=== PATIENT | female | born 1995 | race African-American/Black ===

== ENCOUNTER 2017-01-14 09:05 | Emergency (ER) | payer BC ==
[~2017-01-14] VITALS: Ht 172.7 cm; Wt 53.1 kg
[~2017-01-14 09:05] MED LIST: HYDR-971 PO; NAPR500T3 PO
[2017-01-14 09:14] VITALS: BP 107/60
[2017-01-14] MEDS ORDERED: ONDANSETRON ODT 4 MG TAB.RAPDIS. PO ONE (09:30)
[2017-01-14 10:01] LABS: BILIRUBIN,URINE NEGATIVE (NEG); GLUCOSE,URINE NEGATIVE (NEG); NITRITE,URINE NEGATIVE (NEG); PH,URINE 6.5; PROTEIN,URINE NEGATIVE (NEG-TRACE)
[2017-01-14 10:07] LABS: BACTERIA,URINE FEW /HPF (0-FEW); SQUAMOUS EPITHELIAL CELL,UR OCC /LPF
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
== END 2017-01-14 10:41 | disposition home or self-care (01) ==
LOC: ER 09:05
DX: M54.5 Low back pain (principal); R11.2 Nausea with vomiting, unspecified; F12.10 Cannabis abuse, uncomplicated; R39.15 Urgency of urination; L29.9 Pruritus, unspecified; R35.0 Frequency of micturition; V49.40XA Driver injured in collision with unspecified motor vehicles in traffic accident, initial encounter; Y93.I9 Activity, other involving external motion; Y92.410 Unspecified street and highway as the place of occurrence of the external cause; Y99.8 Other external cause status
CPT/HCPCS: 81001; 81025; 87086; 99284; Q0162

== ENCOUNTER 2017-08-03 10:08 | Emergency (ER) | payer SELFPAY ==
[2017-08-03 10:51] LABS: URINE HCG POC HCG POSITIVE (Negative)
== END 2017-08-03 13:37 | disposition home or self-care (01) ==
LOC: ER 10:08
DX: O26.899 Other specified pregnancy related conditions, unspecified trimester (principal); O23.599 Infection of other part of genital tract in pregnancy, unspecified trimester; B96.89 Other specified bacterial agents as the cause of diseases classified elsewhere; R10.9 Unspecified abdominal pain
CPT/HCPCS: 81025; 84702; 99284; Q0111

== ENCOUNTER 2017-08-30 08:38 | Emergency (ER) | payer SELFPAY ==
[2017-08-30 09:27] LABS: URINE HCG POC HCG POSITIVE (Negative)
[2017-08-30 10:04] LABS: ADD MAN DIFF? NO
[2017-08-30 10:07] LABS: BASO # 0.1 x10^3/uL (0.0-0.2); BASO % 1 % (0-3); EOS # 0.2 x10^3/uL (0.0-0.7); EOS % 5 % (0-3); HEMATOCRIT 41.7 % (36.0-47.0); HEMOGLOBIN 13.8 g/dL (12.0-15.5); LYMPH # 1.2 x10^3/uL (1.0-4.8); LYMPH % 28 % (24-48); MEAN CORPUSCULAR HEMOGLOBIN 31 pg (25-35); MEAN CORPUSCULAR HGB CONC 33 g/dL (31-37); MEAN CORPUSCULAR VOLUME 93 fL (79-100); MONO # 0.5 x10^3/uL (0.0-1.1); MONO % 11 % (0-9); NEUT # 2.4 x10^3uL (1.8-7.7); NEUT % 56 % (31-73); PLATELET COUNT 211 x10^3/uL (140-400); RED BLOOD COUNT 4.49 x10^6/uL (3.50-5.40); WHITE BLOOD COUNT 4.3 x10^3/uL (4.0-11.0)
[2017-08-30 10:13] LABS: BACTERIA,URINE 0 /HPF (0-FEW); BILIRUBIN,URINE NEGATIVE (NEG); CLARITY,URINE CLEAR; COLOR,URINE YELLOW; GLUCOSE,URINE NEGATIVE (NEG); NITRITE,URINE NEGATIVE (NEG); PH,URINE 7.5; PROTEIN,URINE NEGATIVE (NEG-TRACE); RBC,URINE 0 /HPF (0-2); SQUAMOUS EPITHELIAL CELL,UR FEW /LPF; WBC,URINE 0 /HPF (0-4)
[2017-08-31 15:29] LABS: CHLAMYDIA PROBE Negative (Negative); GC PROBE Negative (Negative)
== END 2017-08-30 11:42 | disposition home or self-care (01) ==
LOC: ER 08:38
DX: O20.9 Hemorrhage in early pregnancy, unspecified (principal); O23.591 Infection of other part of genital tract in pregnancy, first trimester; N76.0 Acute vaginitis; B96.89 Other specified bacterial agents as the cause of diseases classified elsewhere; Z3A.01 Less than 8 weeks gestation of pregnancy
CPT/HCPCS: 36415; 76801; 76817; 81001; 81025; 84702; 85025; 86850; 86900; 86901; 87491; 87591; 99285-25; Q0111

== ENCOUNTER 2017-11-15 11:38 | Emergency (ER) | payer BC ==
[2017-11-15] MEDS ORDERED: IV NORMAL SALINE 1000ML BAG 1,000 ML IV (11:58)
[2017-11-15 12:03] LABS: URINE HCG POC HCG NEGATIVE (Negative)
[2017-11-15 12:24] LABS: BILIRUBIN,URINE NEGATIVE (NEG); CLARITY,URINE CLEAR; COLOR,URINE YELLOW; GLUCOSE,URINE NEGATIVE (NEG); PROTEIN,URINE NEGATIVE (NEG-TRACE)
[2017-11-15 12:25] LABS: BACTERIA,URINE FEW /HPF (0-FEW); NITRITE,URINE NEGATIVE (NEG); RBC,URINE RARE /HPF (0-2); SQUAMOUS EPITHELIAL CELL,UR FEW /LPF
[2017-11-15] MEDS: ACETAMINOPHEN 325 MG TABLET. PO (12:36)
[2017-11-15] MEDS: ONDANSETRON ODT 4 MG TAB.RAPDIS. PO (12:36)
[2017-11-16 14:30] LABS: CHLAMYDIA PROBE Positive (Negative); GC PROBE Negative (Negative)
== END 2017-11-15 13:18 | disposition home or self-care (01) ==
LOC: ER 11:38
DX: N76.0 Acute vaginitis (principal); R51 Headache; R11.0 Nausea; B96.89 Other specified bacterial agents as the cause of diseases classified elsewhere; Z87.440 Personal history of urinary (tract) infections
CPT/HCPCS: 81001; 81025; 87086; 87491; 87591; 99284; Q0111; Q0162

== ENCOUNTER 2017-12-10 13:43 | Emergency (ER) | payer BC ==
[2017-12-10] MEDS ORDERED: VERAPAMIL IV (14:15)
[2017-12-10] MEDS: IV NORMAL SALINE 1000ML BAG 500 ML IV ×2 (14:24→16:15)
[2017-12-10 14:32] LABS: ADD MAN DIFF? NO
[2017-12-10 14:37] LABS: BASO # 0.1 x10^3/uL (0.0-0.2); BASO % 1 % (0-3); EOS # 0.2 x10^3/uL (0.0-0.7); EOS % 2 % (0-3); HEMATOCRIT 42.4 % (36.0-47.0); HEMOGLOBIN 14.3 g/dL (12.0-15.5); LYMPH # 2.6 x10^3/uL (1.0-4.8); LYMPH % 30 % (24-48); MEAN CORPUSCULAR HEMOGLOBIN 32 pg (25-35); MEAN CORPUSCULAR HGB CONC 34 g/dL (31-37); MEAN CORPUSCULAR VOLUME 94 fL (79-100); MONO # 0.9 x10^3/uL (0.0-1.1); MONO % 10 % (0-9); NEUT % 58 % (31-73); PLATELET COUNT 230 x10^3/uL (140-400); RED BLOOD COUNT 4.51 x10^6/uL (3.50-5.40); RED CELL DISTRIBUTION WIDTH 13.3 % (11.5-14.5); WHITE BLOOD COUNT 8.7 x10^3/uL (4.0-11.0)
[2017-12-10] MEDS: dilTIAZem IV PUSH 25 MG/5 ML VIAL IVP (14:43)
[2017-12-10 14:59] LABS: ANION GAP 17 (6-14); BLOOD UREA NITROGEN 13 mg/dL (7-20); CALCIUM 8.7 mg/dL (8.5-10.1); CARBON DIOXIDE 21 mmol/L (21-32); CHLORIDE 99 mmol/L (98-107); CREATININE 0.8 mg/dL (0.6-1.0); GFR 106.6; GLUCOSE 112 mg/dL (70-99); POTASSIUM 3.3 mmol/L (3.5-5.1); SODIUM 137 mmol/L (136-145)
[2017-12-10] MEDS: VERAPAMIL 5 MG/2 ML VIAL. IV (15:00)
[2017-12-10 15:03] LABS: URINE HCG POC HCG NEGATIVE (Negative)
[2017-12-10 15:10] LABS: BILIRUBIN,URINE NEGATIVE (NEG); CLARITY,URINE CLEAR; COLOR,URINE YELLOW; GLUCOSE,URINE NEGATIVE (NEG); NITRITE,URINE NEGATIVE (NEG); PROTEIN,URINE NEGATIVE (NEG-TRACE)
[2017-12-10 15:12] LABS: BARBITURATES NEG (NEG); BENZODIAZEPINES NEG (NEG); CANNABINOIDS NEG (NEG); COCAINE NEG (NEG); METHADONE NEG (NEG); OPIATES NEG (NEG); PHENCYCLIDINE NEG (NEG)
[2017-12-10 15:12] LABS: THYROID STIM HORMONE (TSH) 1.321 uIU/mL (0.358-3.74)
[2017-12-10 15:13] LABS: AMPHETAMINE/METHAMPHETAMINE NEG (NEG); ETHANOL, URINE NEG (NEG)
[2017-12-10 15:21] LABS: BACTERIA,URINE FEW /HPF (0-FEW); RBC,URINE 0 /HPF (0-2); SQUAMOUS EPITHELIAL CELL,UR FEW /LPF
[2017-12-10 15:34] LABS: TROPONINI < 0.017 ng/mL (0.000-0.055)
[2017-12-10] MEDS: IOHEXOL 300 MG/ML 100ML VIAL. IV (16:26)
[2017-12-10] MEDS ORDERED: CONTRAST GIVEN MC (16:30)
[2017-12-10] MEDS: FLUCONAZOLE 100 MG TABLET. PO (18:11)
== END 2017-12-10 18:24 | disposition home or self-care (01) ==
LOC: ER 13:43
DX: R00.0 Tachycardia, unspecified (principal); F10.10 Alcohol abuse, uncomplicated; Z87.440 Personal history of urinary (tract) infections
CPT/HCPCS: 36415; 71045; 71275; 80048; 80307; 81001; 81025; 84443; 84484; 85025; 93005; 96374; 96375; 96376; 99285-25; J2060; J3490; J7030; Q9967

== ENCOUNTER 2018-08-21 09:55 | Emergency (ER) | payer BC ==
[~2018-08-21] VITALS: Ht 174 cm; Wt 58.1 kg
[~2018-08-21 09:55] MED LIST changes: +HYDR-3164 PO; -HYDR-971 PO; +METO10TA81 PO; +METR500T PO; +METR70GE14 VG; +NAPR-514 PO; -NAPR500T3 PO
[2018-08-21] MEDS ORDERED: ACETAMINOPHEN 325 MG TABLET. PO ONE (10:15)
[2018-08-21 10:56] LABS: BILIRUBIN,URINE NEGATIVE (NEG); CLARITY,URINE CLOUDY; COLOR,URINE YELLOW; NITRITE,URINE NEGATIVE (NEG); PROTEIN,URINE NEGATIVE (NEG-TRACE)
--- NOTE | 2018-08-21 11:09 | PHYS DOC ---
Past Medical History Past Medical History: , STD, UTI Additional Past Medical Histor: ETOH ABUSE Past Surgical History: No Surgical History Alcohol Use: Heavy Additional Information: last drink 08/18/18 Drug Use: None Adult General Chief Complaint Chief Complaint: ABDOMINAL PAIN IN HPI HPI Patient is a 23 year old female who presents with 17-20 weeks . She has been seeing Dr. More it was actually headed to see the ED today for appointment with the office is closed due to the weather. Patient states that other she has been regularly seen Dr. Chaves OB care that she has been not wanting the baby and has been drinking a half a pint a day up until last 3 days. Patient states the last 3 days she is decided that she does want the baby. She has been 4 times, one and 2 live children. Patient today is complaining of epigastric pain and at times lower abdominal pain that she states feels sharper cramping at times. Patient denies vaginal discharge although she does have some yellow discharge but states it is not abnormal and is not odorous. She denies any vaginal bleeding, fever, nausea, vomiting, diarrhea. Review of Systems Review of Systems Constitutional: Denies fever or chills [] Eyes: Denies change in visual acuity, redness, or eye pain [] HENT: Denies nasal congestion or sore throat [] Respiratory: Denies cough or shortness of breath [] Cardiovascular: No additional information not addressed in HPI [] GI: Epigastric and lower abdominal pain, Denies nausea, vomiting, bloody stools or diarrhea [] : Denies dysuria or hematuria [] Musculoskeletal: Denies back pain or joint pain [] Integument: Denies rash or skin lesions [] Neurologic: Denies headache, focal weakness or sensory changes [] All other systems were reviewed and found to be within normal limits, except as documented in this note. Current Medications Current Medications Current Medications Medications (Trade) Dose Ordered Sig/[facility] Start Time Stop Time Status Last Admin Dose Admin Acetaminophen (Tylenol) 650 mg 1X ONCE 08/21/18 10:15 08/21/18 10:23 DC 08/21/18 10:43 650 MG Allergies Allergies Allergies Coded Allergies Type Severity Reaction Last Updated Verified No Known Drug Allergies 08/04/13 No Physical Exam Physical Exam Constitutional: Well developed, well nourished, no acute distress, non-toxic appearance. [] HENT: Normocephalic, atraumatic, bilateral external ears normal, oropharynx moist, no oral exudates, nose normal. [] Eyes: PERRLA, EOMI, conjunctiva normal, no discharge. [] Neck: Normal range of motion, no tenderness, supple, no stridor. [] Cardiovascular:Heart rate regular rhythm, no murmur [] Lungs & Thorax: Bilateral breath sounds clear to auscultation [] Abdomen: Bowel sounds normal, soft, Epigastric tenderness, no masses, no pulsatile masses. [] Skin: Warm, dry, no erythema, no rash. [] Back: No tenderness, no CVA tenderness. [] Extremities: No tenderness, no cyanosis, no clubbing, ROM intact, no edema. [] Neurologic: Alert and oriented X 3, normal motor function, normal sensory function, no focal deficits noted. [] Psychologic: Affect normal, judgement normal, mood normal. [] Current Patient Data Vital Signs Vital Signs Date Time Temp Pulse Resp B/P (MAP) Pulse Ox O2 Delivery O2 Flow Rate FiO2 08/21/18 10:00 98.1 68 16 106/59 (75) 100 Room Air 98.1 Lab Values Laboratory Tests Test 08/21/18 10:01 08/21/18 10:55 Urine Collection Type Unknown Urine Color Yellow Urine Clarity Cloudy Urine pH 8.0 Urine Specific [place] 1.025 Urine Protein Negative mg/dL (NEG-TRACE) Urine Glucose (UA) Negative mg/dL (NEG) Urine Ketones (Stick) Negative mg/dL (NEG) Urine Blood Negative (NEG) Urine Nitrite Negative (NEG) Urine Bilirubin Negative (NEG) Urine Urobilinogen Dipstick 1.0 mg/dL (0.2 mg/dL) Urine Leukocyte Esterase Small (NEG) Urine RBC 0 /HPF (0-2) Urine WBC 1-4 /HPF (0-4) Urine Squamous Epithelial Cells Mod /LPF Urine Amorphous Sediment Present /HPF Urine Bacteria Moderate /HPF (0-FEW) Urine Mucus Marked /LPF White Blood Count 5.9 x10^3/uL (4.0-11.0) Red Blood Count 3.68 x10^6/uL (3.50-5.40) Hemoglobin 11.6 g/dL (12.0-15.5) L Hematocrit 34.2 % (36.0-47.0) L Mean Corpuscular Volume 93 fL (79-100) Mean Corpuscular Hemoglobin 32 pg (25-35) Mean Corpuscular Hemoglobin Concent 34 g/dL (31-37) Red Cell Distribution Width 13.7 % (11.5-14.5) Platelet Count 152 x10^3/uL (140-400) Neutrophils (%) (Auto) 66 % (31-73) Lymphocytes (%) (Auto) 18 % (24-48) L Monocytes (%) (Auto) 11 % (0-9) H Eosinophils (%) (Auto) 4 % (0-3) H Basophils (%) (Auto) 1 % (0-3) Neutrophils # (Auto) 3.9 x10^3uL (1.8-7.7) Lymphocytes # (Auto) 1.1 x10^3/uL (1.0-4.8) Monocytes # (Auto) 0.6 x10^3/uL (0.0-1.1) Eosinophils # (Auto) 0.3 x10^3/uL (0.0-0.7) Basophils # (Auto) 0.0 x10^3/uL (0.0-0.2) Sodium Level 137 mmol/L (136-145) Potassium Level 3.7 mmol/L (3.5-5.1) Chloride Level 103 mmol/L (98-107) Carbon Dioxide Level 26 mmol/L (21-32) Anion Gap 8 (6-14) Blood Urea Nitrogen 8 mg/dL (7-20) Creatinine 0.6 mg/dL (0.6-1.0) Estimated GFR (Cockcroft-Gault) 147.4 BUN/Creatinine Ratio 13 (6-20) Glucose Level 70 mg/dL (70-99) Calcium Level 8.3 mg/dL (8.5-10.1) L Total Bilirubin 0.4 mg/dL (0.2-1.0) Aspartate Amino Transferase (AST) 13 U/L (15-37) L Alanine Aminotransferase (ALT) 15 U/L (14-59) Alkaline Phosphatase 47 U/L (46-116) Total Protein 6.6 g/dL (6.4-8.2) Albumin 3.0 g/dL (3.4-5.0) L Albumin/Globulin Ratio 0.8 (1.0-1.7) L Lipase 109 U/L (73-393) Laboratory Tests 08/21/18 10:55 Laboratory Tests 08/21/18 10:55 EKG EKG [] Radiology/Procedures Radiology/Procedures OB ultrasound Impressions: [facility] [address] [place] [address] IMAGING REPORT Signed PATIENT: NORA CHEATHAM ACCOUNT: [id number] : 1995 LOCATION: ER AGE: 23 SEX: F EXAM STATUS: REG ER ORD. PHYSICIAN: KEELY CASPER APRN REASON: abdominal pain PROCEDURE: PREG MORE THAN OR EQ TO 14 WKS uterus ultrasound more than or equal to 14 weeks History: Abdominal pain Comparison: There is no previous relevant exam available Findings: Multiple sonographic images of the uterus are submitted. There is a single intrauterine fetus, breech presentation. bladder which was noted by technologist. There is demonstrable cardiac activity 147 bpm. Amniotic fluid volume is subjectively within normal limits. anatomy is not fully evaluated at this age of . Sonographic images of the maternal adnexal regions are not submitted. Focus of hypoechogenicity of the placenta is likely due to placental fitzgerald. Biometry data are as follows: Biparietal diameter 3.77 cm corresponds 17 weeks 4 days, 83rd percentile Head circumference 13.55 cm corresponding 17 weeks 0 days, 56 percentile Abdominal circumference 11.88 cm corresponds 17 weeks 4 days, 79th percentile Femur length 2.42 cm corresponds with 17 weeks 2 days, 68 percentile HC/AC ratio 1.14 within normal limits Estimated weight 194 g +/- 29 g Adjusted ultrasound age 17 weeks 3 days with estimated delivery date by ultrasound 01/26/2019. LMP age is 16 weeks 5 days with estimated delivery date of 01/31/2019. Impression: 1. There is a single viable intrauterine fetus in breech presentation. Focus of hypoechogenicity of the placenta is more likely due to placental fitzgerald. Electronically signed by: Jose Rafael العراقي MD (08/21/2018 11:11 AM) [id number] DICTATED and SIGNED BY: JOSE RAFAEL العراقي MD DATE: 08/21/18 1103 Course & Med Decision Making Course & Med Decision Making Patient is a 23 year old female who presents with 17-20 weeks . She has been seeing Dr. More it was actually headed to see the ED today for appointment with the office is closed due to the weather. Patient states that other she has been regularly seen Dr. Chaves OB care that she has been not wanting the baby and has been drinking a half a pint a day up until last 3 days. Patient states the last 3 days she is decided that she does want the baby. She has been 4 times, one and 2 live children. Patient today is complaining of epigastric pain and at times lower abdominal pain that she states feels sharper cramping at times. Patient denies vaginal discharge although she does have some yellow discharge but states it is not abnormal and is not odorous. She denies any vaginal bleeding, fever, nausea, vomiting, diarrhea. Alert and oriented. Infiltrate with a steady gait. She is currently rating her pain a 7 out of 10 and states that she has had a cough that she's been using cough syrup. There is Epigastric tenderness with palpation. She denies dysuria. Patient has no extremity edema. Vital signs are within normal limits. She denies shortness of breath or chest pain. Lungs are clear to auscultation all lobes. Heart rate regular without murmur. US shows 1. There is a single viable intrauterine fetus in breech presentation. Focus of hypoechogenicity of the placenta is more likely due to placental fitzgerald. Urinalysis shows some bacteria she'll be treated for urinary tract infection. Blood work is unremarkable. Not all of the patient's blood work is back at the patient is wanting to leave. Patient will need to follow up with her OB doctor as soon as possible. She is to call them today. Dragon Disclaimer Dragon Disclaimer This electronic medical record was generated, in whole or in part, using a voice recognition dictation system. Departure Departure Impression: Primary Impression: UTI (lower urinary tract infection) Disposition: 01 HOME, SELF-CARE Condition: STABLE Referrals: RICCO MORE Jr, MD (PCP) Patient Instructions: Alcohol Screening in , - Urinary Tract Infection Additional Instructions: Call Dr. More today for follow-up care at another point pain. Do not drink alcohol. Take medication as prescribed. Scripts Cephalexin (KEFLEX) 500 Mg Capsule 1 CAP PO BID for 7 Days, #14 CAP Prov: KEELY CASPER APRN 08/21/18 KEELY CASPER APRN Aug 21, 2018 11:09
--- NOTE | 2018-08-21 11:15 | RAD ---
uterus ultrasound more than or equal to 14 weeks History: Abdominal pain Comparison: There is no previous relevant exam available Findings: Multiple sonographic images of the uterus are submitted. There is a single intrauterine fetus, breech presentation. bladder which was noted by technologist. There is demonstrable cardiac activity 147 bpm. Amniotic fluid volume is subjectively within normal limits. anatomy is not fully evaluated at this age of . Sonographic images of the maternal adnexal regions are not submitted. Focus of hypoechogenicity of the placenta is likely due to placental fitzgerald. Biometry data are as follows: Biparietal diameter 3.77 cm corresponds 17 weeks 4 days, 83rd percentile Head circumference 13.55 cm corresponding 17 weeks 0 days, 56 percentile Abdominal circumference 11.88 cm corresponds 17 weeks 4 days, 79th percentile Femur length 2.42 cm corresponds with 17 weeks 2 days, 68 percentile HC/AC ratio 1.14 within normal limits Estimated weight 194 g +/- 29 g Adjusted ultrasound age 17 weeks 3 days with estimated delivery date by ultrasound 01/26/2019. LMP age is 16 weeks 5 days with estimated delivery date of 01/31/2019. Impression: 1. There is a single viable intrauterine fetus in breech presentation. Focus of hypoechogenicity of the placenta is more likely due to placental fitzgerald. Electronically signed by: Kevin Maguire MD (08/21/2018 11:11 AM) [id number]
[2018-08-21 11:16] LABS: BASO % 1 % (0-3); EOS # 0.3 x10^3/uL (0.0-0.7); EOS % 4 % (0-3); HEMATOCRIT 34.2 % (36.0-47.0); HEMOGLOBIN 11.6 g/dL (12.0-15.5); LYMPH # 1.1 x10^3/uL (1.0-4.8); LYMPH % 18 % (24-48); MEAN CORPUSCULAR HEMOGLOBIN 32 pg (25-35); MEAN CORPUSCULAR HGB CONC 34 g/dL (31-37); MEAN CORPUSCULAR VOLUME 93 fL (79-100); MONO # 0.6 x10^3/uL (0.0-1.1); MONO % 11 % (0-9); NEUT # 3.9 x10^3uL (1.8-7.7); NEUT % 66 % (31-73); PLATELET COUNT 152 x10^3/uL (140-400); RED BLOOD COUNT 3.68 x10^6/uL (3.50-5.40); RED CELL DISTRIBUTION WIDTH 13.7 % (11.5-14.5); WHITE BLOOD COUNT 5.9 x10^3/uL (4.0-11.0)
[2018-08-21 11:22] LABS: CALCIUM 8.3 mg/dL (8.5-10.1); CREATININE 0.6 mg/dL (0.6-1.0); GFR 147.4; POTASSIUM 3.7 mmol/L (3.5-5.1)
[2018-08-21 11:27] LABS: SQUAMOUS EPITHELIAL CELL,UR MOD /LPF
[2018-08-21 11:28] LABS: ALBUMIN/GLOBULIN RATIO 0.8 (1.0-1.7); TOTAL BILIRUBIN 0.4 mg/dL (0.2-1.0); TOTAL PROTEIN 6.6 g/dL (6.4-8.2)
[2018-08-21 11:28] LABS: AMORPHOUS SEDIMENT,UR PRESENT /HPF; BACTERIA,URINE MODERATE /HPF (0-FEW); RBC,URINE 0 /HPF (0-2)
[2018-08-21 11:41] VITALS: BP 102/58
[2018-08-21] MEDS ORDERED: CEPH-264 PO (11:53)
[2018-08-21 11:59] LABS: AMPHETAMINE/METHAMPHETAMINE NEG (NEG); BARBITURATES NEG (NEG); BENZODIAZEPINES NEG (NEG); CANNABINOIDS NEG (NEG); COCAINE NEG (NEG); METHADONE NEG (NEG); OPIATES NEG (NEG); PHENCYCLIDINE NEG (NEG)
== END 2018-08-21 11:59 | disposition home or self-care (01) ==
LOC: ER 09:55
DX: O23.42 Unspecified infection of urinary tract in pregnancy, second trimester (principal); O99.312 Alcohol use complicating pregnancy, second trimester; F10.20 Alcohol dependence, uncomplicated; Z3A.17 17 weeks gestation of pregnancy; Y90.0 Blood alcohol level of less than 20 mg/100 ml
CPT/HCPCS: 36415; 76805; 80053; 80307; 81001; 83690; 84702; 85025; 87086; 99284; G0480

== ENCOUNTER → 2018-09-13 | Outpatient (CLI) | payer BC ==
[2018-08-21 11:41] VITALS: BP 102/58
[~2018-09-13] MED LIST changes: +CEPH-264 PO
--- NOTE | 2018-09-13 13:01 | RAD ---
EXAM: Obstetrics sonogram. HISTORY: Uterine size and dates discrepancy. TECHNIQUE: Sonographic imaging of a gravid uterus was performed. COMPARISON: 08/21/2018. FINDINGS: There is a single intrauterine fetus in transverse presentation with a heart rate of 143 bpm. There is body motion. There is a three-vessel umbilical cord with normal insertion. The stomach, kidneys, bladder, spine and brain are unremarkable. The facial profile is unremarkable. The cervix is not measured. There is an anterior placenta without evidence of placenta previa. The biparietal diameter is 4.6 cm, corresponding with 19 weeks and 6 days. The head circumference is 17.5 cm, corresponding with 20 weeks and 0 days. The abdominal circumference is 15.2 cm, corresponding with 20 weeks and 3 days. The femoral length is 3.4 cm, corresponding with 20 weeks and 5 days. The estimated gestational age patient combined ultrasound measurements is 20 weeks and 2 days. The estimated weight is 358 g. The estimated due date is 01/29/2019. IMPRESSION: Single intrauterine fetus with an estimated gestational age based on ultrasound measurements of 20 weeks and 2 days and heart rate of 143 bpm. Electronically signed by: Micki Conrad MD (09/13/2018 12:58 PM) [email or web address]
== END | disposition home or self-care (01) ==
LOC: US 06:39
PROVIDERS: ATTEND Obstetrics & Gynecology
DX: O32.2XX0 Maternal care for transverse and oblique lie, not applicable or unspecified (principal); O26.842 Uterine size-date discrepancy, second trimester; Z3A.20 20 weeks gestation of pregnancy
CPT/HCPCS: 76805

== ENCOUNTER 2018-09-14 11:39 | Observation (INO) | payer BC ==
[2018-09-14] MEDS ORDERED: IV RINGERS,LACTATED 1000ML 1,000 ML IV SCH (11:51)
[2018-09-14 12:27] LABS: BILIRUBIN,URINE NEGATIVE (NEG); CLARITY,URINE CLEAR; COLOR,URINE YELLOW; NITRITE,URINE NEGATIVE (NEG); PH,URINE 6.5; PROTEIN,URINE NEGATIVE (NEG-TRACE)
[2018-09-14 12:28] LABS: AMNIO PT NEGATIVE
[2018-09-14 12:38] LABS: BACTERIA,URINE FEW /HPF (0-FEW); RBC,URINE OCC /HPF (0-2); SQUAMOUS EPITHELIAL CELL,UR MANY /LPF
== END 2018-09-14 13:15 | disposition home or self-care (01) ==
LOC: 3 SO LND 11:39
PROVIDERS: ADMIT Obstetrics & Gynecology; ATTEND Obstetrics & Gynecology
DX: O42.912 Preterm premature rupture of membranes, unspecified as to length of time between rupture and onset of labor, second trimester (principal); Z3A.20 20 weeks gestation of pregnancy
CPT/HCPCS: 36415; 81001; 84112; G0378; G0379; 87086

== ENCOUNTER 2018-09-27 18:10 | Observation (INO) | payer BC ==
[2018-09-27] MEDS ORDERED: IV RINGERS,LACTATED 1000ML 1,000 ML IV SCH (18:42)
[2018-09-27 18:52] LABS: BILIRUBIN,URINE NEGATIVE (NEG); CLARITY,URINE CLEAR; COLOR,URINE YELLOW; NITRITE,URINE NEGATIVE (NEG); PH,URINE 7.5; PROTEIN,URINE NEGATIVE (NEG-TRACE)
[2018-09-27 18:55] LABS: BACTERIA,URINE FEW /HPF (0-FEW); RBC,URINE 0 /HPF (0-2); SQUAMOUS EPITHELIAL CELL,UR MOD /LPF
[2018-09-27 19:27] LABS: BASO % 0 % (0-3); EOS # 0.2 x10^3/uL (0.0-0.7); EOS % 3 % (0-3); HEMATOCRIT 31.6 % (36.0-47.0); HEMOGLOBIN 10.7 g/dL (12.0-15.5); LYMPH # 1.2 x10^3/uL (1.0-4.8); LYMPH % 15 % (24-48); MEAN CORPUSCULAR HEMOGLOBIN 32 pg (25-35); MEAN CORPUSCULAR HGB CONC 34 g/dL (31-37); MEAN CORPUSCULAR VOLUME 93 fL (79-100); MONO # 0.7 x10^3/uL (0.0-1.1); MONO % 8 % (0-9); NEUT # 5.8 x10^3uL (1.8-7.7); NEUT % 74 % (31-73); PLATELET COUNT 145 x10^3/uL (140-400); RED BLOOD COUNT 3.39 x10^6/uL (3.50-5.40); RED CELL DISTRIBUTION WIDTH 13.6 % (11.5-14.5); WHITE BLOOD COUNT 7.8 x10^3/uL (4.0-11.0)
--- NOTE | 2018-09-27 21:07 | RAD ---
Examination: OB LIMITED History: Vaginal bleeding x 1 day

live iup 22w 6d, cephalic, cx length 3.8 cm Comparison/Correlation: 09/13/2018 OB ultrasound exam Findings: OB ultrasound exam was performed. Single living intrauterine gestation is present. Cephalic lie is evident. Cervical length is 3.6 cm. heart rate of 144 bpm noted. Normal quantity of amniotic fluid present. Biparietal diameter is 5.43 cm corresponding to 22 weeks 4 days. Head circumference is 20.36 cm corresponding to 22 weeks 3 days Abdominal circumference is 17.6 cm corresponding to 22 weeks 3 days Femur length is 4.22 cm corresponding to 23 weeks 5 days Head circumference to abdominal circumference ratio 1.16 is present Estimated weight is 552 g +/- 82 g Gestational age of 22 weeks 6 days by ultrasound noted EDC by ultrasound is 01/25/2019 Four-chamber heart is identified. motion is evident. Cardiac activity evident. Placenta is present at the anterior wall. Impression: Single living intrauterine gestation with age by 4 parameters corresponding to 22 weeks and 6 days. Adequate interval growth compared to the previous exam. EDC by ultrasound is 4 days sooner then by last menstrual period. No subchronic hemorrhage or suspicious finding. Cervical length of 3.6 cm. Electronically signed by: Mario Wisdom MD (09/27/2018 9:04 PM) [facility]
== END 2018-09-27 22:05 | disposition home or self-care (01) ==
LOC: 3 SO LND 18:10
PROVIDERS: ADMIT Obstetrics & Gynecology; ATTEND Obstetrics & Gynecology
DX: O46.92 Antepartum hemorrhage, unspecified, second trimester (principal); O98.812 Other maternal infectious and parasitic diseases complicating pregnancy, second trimester; H44.009 Unspecified purulent endophthalmitis, unspecified eye; Z3A.22 22 weeks gestation of pregnancy
CPT/HCPCS: 36415; 76815; 81001; 85025; 87086; G0378; G0379

== ENCOUNTER → 2018-11-04 | Outpatient (CLI) | payer BC ==
[2018-11-04 11:29] LABS: BASO # 0.1 x10^3/uL (0.0-0.2); BASO % 1 % (0-3); EOS # 0.2 x10^3/uL (0.0-0.7); EOS % 3 % (0-3); HEMATOCRIT 35.3 % (36.0-47.0); HEMOGLOBIN 11.8 g/dL (12.0-15.5); LYMPH # 1.1 x10^3/uL (1.0-4.8); LYMPH % 14 % (24-48); MEAN CORPUSCULAR HEMOGLOBIN 31 pg (25-35); MEAN CORPUSCULAR HGB CONC 33 g/dL (31-37); MEAN CORPUSCULAR VOLUME 93 fL (79-100); MONO # 0.6 x10^3/uL (0.0-1.1); MONO % 8 % (0-9); NEUT # 6.2 x10^3uL (1.8-7.7); NEUT % 76 % (31-73); PLATELET COUNT 132 x10^3/uL (140-400); RED CELL DISTRIBUTION WIDTH 13.3 % (11.5-14.5); WHITE BLOOD COUNT 8.2 x10^3/uL (4.0-11.0)
== END | disposition home or self-care (01) ==
LOC: LAB 09:30
PROVIDERS: ATTEND Obstetrics & Gynecology
DX: O09.92 Supervision of high risk pregnancy, unspecified, second trimester (principal); Z3A.25 25 weeks gestation of pregnancy
CPT/HCPCS: 36415; 82950; 85025; 86592; 86703; 86762; 86850; 86900; 86901; 87340

== ENCOUNTER 2019-01-18 16:23 | Emergency (ER) | payer BC ==
[~2019-01-18] VITALS: Ht 172.7 cm; Wt 68.0 kg
[2019-01-18 17:28] VITALS: BP 97/52
--- NOTE | 2019-01-18 19:01 | PHYS DOC ---
Past Medical History Past Medical History: , STD, UTI Additional Past Medical Histor: ETOH ABUSE (BLANE BARRIOS APRN) Past Surgical History: No Surgical History (BLANE BARRIOS APRN) Alcohol Use: Heavy Drug Use: None (BLANE BARRIOS APRN) Adult General Chief Complaint Chief Complaint: CHEST WALL PAIN HPI HPI Patient is a 23 year old female who is 38 weeks who presents with a chief complaint of chest pain on left side of chest accompanied by shortness of breath. This has been ongoing for several months. She was also having pelvic pain on initial evaluation around 5:00. She was sent to labor and delivery to be checked out cleared. Her pain is 4 out of 10. The pain is intermittent in duration. Is not relieved by rest. Has not tried any medication prior to arrival. (BLANE BARRIOS APRN) Review of Systems Review of Systems Constitutional: Denies fever or chills [] Eyes: Denies change in visual acuity, redness, or eye pain [] HENT: Denies nasal congestion or sore throat [] Respiratory: Denies cough but reports shortness of breath for several months. Cardiovascular: No additional information not addressed in HPI [] GI: Reports pelvic pain, Denies nausea, vomiting, bloody stools or diarrhea [] : Denies dysuria or hematuria [] Musculoskeletal: Denies back pain or joint pain [] Integument: Denies rash or skin lesions [] Neurologic: Denies headache, focal weakness or sensory changes [] Endocrine: Denies polyuria or polydipsia [] Complete other systems were reviewed and found to be within normal limits, except as documented in this note. (BLANE BARRIOS APRN) Current Medications Current Medications Current Medications Medications (Trade) Dose Ordered Sig/[place] Start Time Stop Time Status Last Admin Dose Admin Acetaminophen (Tylenol) 500 mg 1X ONCE 01/18/19 19:30 01/18/19 19:31 DC 01/18/19 19:30 500 MG (JUANITO CAMEJO MD) Allergies Allergies Allergies Coded Allergies Type Severity Reaction Last Updated Verified No Known Drug Allergies 08/04/13 No (JUANITO CAMEJO MD) Physical Exam Physical Exam Constitutional: Well developed, well nourished, no acute distress, non-toxic appearance. [] HENT: Normocephalic, atraumatic, bilateral external ears normal, oropharynx moist, no oral exudates, nose normal. [] Eyes: PERRLA, EOMI, conjunctiva normal, no discharge. [] Neck: Normal range of motion, no tenderness, supple, no stridor. [] Cardiovascular:Heart rate regular rhythm, no murmur [] Lungs & Thorax: Bilateral breath sounds clear to auscultation [] Abdomen: Bowel sounds normal, soft, no tenderness, no masses, no pulsatile ma sses. [] Skin: Warm, dry, no erythema, no rash. [] Back: No tenderness, no CVA tenderness. [] Extremities: No tenderness, no cyanosis, no clubbing, ROM intact, no edema. [] Neurologic: Alert and oriented X 3, normal motor function, normal sensory function, no focal deficits noted. [] Psychologic: Affect normal, judgement normal, mood normal. [] (BLANE BARRIOS APRN) Current Patient Data Vital Signs Vital Signs Date Time Temp Pulse Resp B/P (MAP) Pulse Ox O2 Delivery O2 Flow Rate FiO2 01/18/19 17:28 98.3 84 17 97/52 (67) 100 Room Air 98.3 (JUANITO CAMEJO MD) EKG EKG EKG interpreted by Dr. Maurisio Fierro with rate of 72. No STEMI[] (BLANE BARRIOS APRN) Radiology/Procedures Radiology/Procedures [] (BLANE BARRIOS APRN) Course & Med Decision Making Course & Med Decision Making Pertinent Labs and Imaging studies reviewed. (See chart for details) Discussed with patient the risks and benefits of different workups. Discussed Pulmonary Embolus and with this ongoing for 3 months it is unlikely to be an acute pulmonary embolus. The risks of checking outweigh the benefits with her be ing 38 weeks . She has a negative PERC score. Heart rate is 77 during examination. O2 sats are 98%. Will do an EKG, give tylenol and d/c. (BLANE BARRIOS APRN) Course & Med Decision Making Staff Physician Addendum: I was working in the ER during the course of this patient's visit. I was available for consultation as needed, but I was not directly involved in the care of this patient. (JUANITO CAMEJO MD) Dragon Disclaimer Dragon Disclaimer This electronic medical record was generated, in whole or in part, using a voice recognition dictation system. (BLANE BARRIOS APRN) Departure Departure Impression: Primary Impression: Chest pain Disposition: HOME, SELF-CARE Condition: STABLE Referrals: NO PCP (PCP) Patient Instructions: Costochondritis, [id number] Additional Instructions: Thank you for visiting [facility]. We appreciate you trusting us with your care. If any additional problems come up don't hesitate to return to visit us. Please follow up with your primary care provider so they can plan additional care if needed and know about the problem that you had. If symptoms worsen come back to the Emergency Department. Any concerning symptoms that start such as weakness or numbness on one side of the body, running high fevers or any other concerning symptoms return to the ER. PERC Rule for PE PERC Rule for PE PERC Rule for PE Response (Comments) Value Age > 50: No 0 HR > 100: No 0 Sa02 on room air <95%: No 0 Unilateral leg swelling: No 0 Hemoptysis: No 0 Recent surgery or trauma: No 0 Prior PE or DVT: No 0 Hormone use: No 0 Total 0 Problem Qualifiers Primary Impression: Chest pain Chest pain type: unspecified Qualified Codes: R07.9 - Chest pain, unspecified BLANE BARRIOS APRN Jan 18, 2019 19:01 JUANITO CAMEJO MD Jan 19, 2019 04:10
[2019-01-18] MEDS ORDERED: ACETAMINOPHEN 500 MG TABLET PO ONE (19:30)
--- NOTE | 2019-01-19 08:56 | EKG ---
[facility] [address] [place] [address] Test Date: 2019-01-18 Test Time: 19:43:21 Pat Name: NORA CHEATHAM Department: Room: Gender: F Regional Production Manager: : 1995 Requested By: BLANE BARRIOS Order Number: [id number] Reading MD: Measurements Intervals [place] Rate: 72 P: 25 NM: 94 QRS: 52 QRSD: 84 T: 29 QT: 390 QTc: 433 Interpretive Statements SINUS RHYTHM INCOMPLETE RIGHT BUNDLE BRANCH BLOCK OTHERWISE NORMAL ECG No previous ECG available for comparison
== END 2019-01-18 19:50 | disposition home or self-care (01) ==
LOC: ER 16:23
DX: O99.89 Other specified diseases and conditions complicating pregnancy, childbirth and the puerperium (principal); R07.89 Other chest pain; O99.513 Diseases of the respiratory system complicating pregnancy, third trimester; R06.02 Shortness of breath; O99.313 Alcohol use complicating pregnancy, third trimester; Z3A.38 38 weeks gestation of pregnancy
CPT/HCPCS: 93005; 99283

== ENCOUNTER 2019-01-18 17:41 | Observation (INO) | payer BC ==
[2019-01-18 17:28] VITALS: BP 97/52
[2019-01-18] MEDS ORDERED: IV RINGERS,LACTATED 1000ML 1,000 ML IV SCH (18:14)
[2019-01-18 18:33] LABS: BILIRUBIN,URINE NEGATIVE (NEG); CLARITY,URINE CLOUDY; COLOR,URINE YELLOW; NITRITE,URINE NEGATIVE (NEG); PH,URINE 6.5; PROTEIN,URINE NEGATIVE (NEG-TRACE)
[2019-01-18 18:39] LABS: BACTERIA,URINE MODERATE /HPF (0-FEW); RBC,URINE 0 /HPF (0-2); SQUAMOUS EPITHELIAL CELL,UR MOD /LPF; WBC,URINE 20-40 /HPF (0-4)
[2019-01-18 18:40] LABS: BARBITURATES NEG (NEG); BENZODIAZEPINES NEG (NEG); CANNABINOIDS NEG (NEG); COCAINE NEG (NEG); METHADONE NEG (NEG); OPIATES NEG (NEG); PHENCYCLIDINE NEG (NEG)
[2019-01-18 18:42] LABS: AMPHETAMINE/METHAMPHETAMINE NEG (NEG)
== END 2019-01-18 18:50 | disposition home or self-care (01) ==
LOC: 3 SO LND 17:41
PROVIDERS: ADMIT Obstetrics & Gynecology; ATTEND Obstetrics & Gynecology
DX: O26.893 Other specified pregnancy related conditions, third trimester (principal); R07.89 Other chest pain; N64.4 Mastodynia; O99.89 Other specified diseases and conditions complicating pregnancy, childbirth and the puerperium; M25.519 Pain in unspecified shoulder; Z3A.38 38 weeks gestation of pregnancy
CPT/HCPCS: 80307; 81001; 87086; G0378; G0379

== ENCOUNTER 2019-02-09 15:08 | Emergency (ER) | payer BC ==
[~2019-02-09] VITALS: Ht 172.7 cm; Wt 59.0 kg
[~2019-02-09 15:08] MED LIST changes: +IBUP-1027 PO
[2019-02-09] MEDS ORDERED: ASPIRIN 325 MG TABLET PO ONE (15:45)
[2019-02-09] MEDS ORDERED: CONTRAST GIVEN. MC PRN (16:00)
[2019-02-09] MEDS ORDERED: IOHEXOL 350 MG/ML 100 ML VIAL. IV ONE (16:00)
[2019-02-09 16:01] LABS: BASO # 0.1 x10^3/uL (0.0-0.2); BASO % 1 % (0-3); EOS # 0.1 x10^3/uL (0.0-0.7); EOS % 2 % (0-3); HEMATOCRIT 38.5 % (36.0-47.0); HEMOGLOBIN 13.1 g/dL (12.0-15.5); LYMPH # 1.4 x10^3/uL (1.0-4.8); LYMPH % 17 % (24-48); MEAN CORPUSCULAR HEMOGLOBIN 30 pg (25-35); MEAN CORPUSCULAR HGB CONC 34 g/dL (31-37); MEAN CORPUSCULAR VOLUME 89 fL (79-100); MONO # 0.5 x10^3/uL (0.0-1.1); MONO % 6 % (0-9); NEUT # 5.8 x10^3/uL (1.8-7.7); NEUT % 74 % (31-73); PLATELET COUNT 303 x10^3/uL (140-400); RED BLOOD COUNT 4.31 x10^6/uL (3.50-5.40); WHITE BLOOD COUNT 7.9 x10^3/uL (4.0-11.0)
[2019-02-09 16:04] LABS: BILIRUBIN,URINE NEGATIVE (NEG); CLARITY,URINE CLEAR; COLOR,URINE YELLOW; NITRITE,URINE NEGATIVE (NEG); PROTEIN,URINE NEGATIVE (NEG-TRACE)
[2019-02-09 16:09] LABS: PROTHROMBIN TIME PATIENT 13.6 SEC (11.7-14.0)
[2019-02-09 16:10] LABS: AMPHETAMINE/METHAMPHETAMINE NEG (NEG); BARBITURATES NEG (NEG); BENZODIAZEPINES NEG (NEG); CANNABINOIDS NEG (NEG); COCAINE NEG (NEG); METHADONE NEG (NEG); OPIATES NEG (NEG); PHENCYCLIDINE NEG (NEG)
[2019-02-09 16:14] LABS: BACTERIA,URINE MOD /HPF (0-FEW); SQUAMOUS EPITHELIAL CELL,UR MOD /LPF
[2019-02-09 16:14] LABS: CALCIUM 8.8 mg/dL (8.5-10.1); CREATININE 0.8 mg/dL (0.6-1.0); GFR 105.8; POTASSIUM 3.7 mmol/L (3.5-5.1)
[2019-02-09 16:20] LABS: ALBUMIN 3.5 g/dL (3.4-5.0); ALBUMIN/GLOBULIN RATIO 0.8 (1.0-1.7); TOTAL BILIRUBIN 0.9 mg/dL (0.2-1.0); TOTAL PROTEIN 7.8 g/dL (6.4-8.2)
[2019-02-09 16:29] LABS: CREATINE KINASE 43 U/L (26-192)
--- NOTE | 2019-02-09 16:49 | RAD ---
Examination: CT angiography chest HISTORY: History of chest pain, shortness of breath COMPARISON: 12/10/2017 TECHNIQUE: Axial CT angiography images of chest were performed with IV contrast. Coronal and sagittal 3-D MIP reformats are performed Exposure: One or more of the following individualized dose reduction techniques were utilized for this examination: 1. Automated exposure control 2. Adjustment of the mA and/or kV according to patient size 3. Use of iterative reconstruction technique FINDINGS: The visualized thyroid grossly appears unremarkable. The central airways are patent. The heart size grossly appears unremarkable. The caliber of the aorta grossly appears unremarkable. There is no evidence of filling defect identified in the main pulmonary arterial trunk and right and left main pulmonary arteries. The evaluation the distal lobar, segmental branches of the pulmonary arteries is limited due to lack of IV contrast within these branches. Minimal atelectasis left lung base. The visualized liver, grossly appears unremarkable. Faint ill-defined hypodensity identified in the posterior spleen, nonspecific. No evidence of lytic bony destructive lesion. IMPRESSION: 1. No evidence of central pulmonary embolism. The evaluation the distal lobar, segmental branches of the pulmonary arteries is limited. 2. Minimal left lung base atelectasis. 3. Minimal ill-defined hypodensity identified in the posterior spleen, difficult to evaluate. Electronically signed by: Ivan Scales MD (02/09/2019 4:46 PM) [facility]
[2019-02-09] MEDS ORDERED: CEPH500C PO (17:54)
[2019-02-09] MEDS ORDERED: PROVENTIL HFA6.7 G2 INH (17:54)
--- NOTE | 2019-02-09 17:55 | PHYS DOC ---
Past Medical History Past Medical History: No Pertinent History Additional Past Medical Histor: ETOH ABUSE Past Surgical History: No Surgical History Alcohol Use: None Drug Use: None Adult General Chief Complaint Chief Complaint: SHORTNESS OF BREATH HPI HPI Patient is a 23 year old female who presents to the ED today complaining of 5 out of 10 left-sided chest pain, shortness of breath, left shoulder pain, patient states symptoms have been going on for 1 year and got worse in the last 2 weeks after having vaginal delivery for her third baby. Patient denies anything exacerbating or relieving her symptoms. She states she thinks she has anxiety but is not on any antianxiety medications. Review of Systems Review of Systems Constitutional: Denies fever or chills [] Eyes: Denies change in visual acuity, redness, or eye pain [] HENT: Denies nasal congestion or sore throat [] Respiratory: Reports shortness of breath. Denies cough Cardiovascular: Reports left-sided chest pain GI: Denies abdominal pain, nausea, vomiting, bloody stools or diarrhea [] : Denies dysuria or hematuria [] Musculoskeletal: Reports left shoulder pain Integument: Denies rash or skin lesions [] Neurologic: Denies headache, focal weakness or sensory changes [] All other systems were reviewed and found to be within normal limits, except as documented in this note. Current Medications Current Medications Current Medications Medications (Trade) Dose Ordered Sig/Cecille Start Time Stop Time Status Last Admin Dose Admin Aspirin (Bhupendra Aspirin) 325 mg 1X ONCE 02/09/19 15:45 02/09/19 15:46 DC 02/09/19 16:35 325 MG Info (CONTRAST GIVEN -- Rx MONITORING) 1 each PRN DAILY PRN 02/09/19 16:00 02/11/19 15:59 Iohexol (Omnipaque 350 Mg/ml) 75 ml 1X ONCE 02/09/19 16:00 02/09/19 16:01 DC Allergies Allergies Allergies Coded Allergies Type Severity Reaction Last Updated Verified No Known Drug Allergies 01/26/19 No Physical Exam Physical Exam Constitutional: Well developed, well nourished, no acute distress, non-toxic appearance. [] HENT: Normocephalic, atraumatic, bilateral external ears normal, oropharynx moist, no oral exudates, nose normal. [] Eyes: PERRLA, EOMI, conjunctiva normal, no discharge. [] Neck: Normal range of motion, no tenderness, supple, no stridor. [] Cardiovascular:Heart rate regular rhythm, no murmur [] Lungs & Thorax: Bilateral breath sounds clear to auscultation [] Abdomen: Bowel sounds normal, soft, no tenderness, no masses, no pulsatile masses. [] Skin: Warm, dry, no erythema, no rash. [] Back: No tenderness, no CVA tenderness. [] Extremities: No tenderness, no cyanosis, no clubbing, ROM intact, no edema. [] Neurologic: Alert and oriented X 3, normal motor function, normal sensory function, no focal deficits noted. [] Psychologic: Affect normal, judgement normal, mood normal. [] Current Patient Data Vital Signs Vital Signs Date Time Temp Pulse Resp B/P (MAP) Pulse Ox O2 Delivery O2 Flow Rate FiO2 02/09/19 17:34 62 16 105/60 (75) 99 Room Air 02/09/19 15:28 98.5 98.5 Lab Values Laboratory Tests Test 02/09/19 15:55 02/09/19 15:56 White Blood Count 7.9 x10^3/uL (4.0-11.0) Red Blood Count 4.31 x10^6/uL (3.50-5.40) Hemoglobin 13.1 g/dL (12.0-15.5) Hematocrit 38.5 % (36.0-47.0) Mean Corpuscular Volume 89 fL (79-100) Mean Corpuscular Hemoglobin 30 pg (25-35) Mean Corpuscular Hemoglobin Concent 34 g/dL (31-37) Red Cell Distribution Width 14.0 % (11.5-14.5) Platelet Count 303 x10^3/uL (140-400) Neutrophils (%) (Auto) 74 % (31-73) H Lymphocytes (%) (Auto) 17 % (24-48) L Monocytes (%) (Auto) 6 % (0-9) Eosinophils (%) (Auto) 2 % (0-3) Basophils (%) (Auto) 1 % (0-3) Neutrophils # (Auto) 5.8 x10^3/uL (1.8-7.7) Lymphocytes # (Auto) 1.4 x10^3/uL (1.0-4.8) Monocytes # (Auto) 0.5 x10^3/uL (0.0-1.1) Eosinophils # (Auto) 0.1 x10^3/uL (0.0-0.7) Basophils # (Auto) 0.1 x10^3/uL (0.0-0.2) Prothrombin Time 13.6 SEC (11.7-14.0) Prothrombin Time INR 1.1 (0.8-1.1) Sodium Level 142 mmol/L (136-145) Potassium Level 3.7 mmol/L (3.5-5.1) Chloride Level 105 mmol/L (98-107) Carbon Dioxide Level 26 mmol/L (21-32) Anion Gap 11 (6-14) Blood Urea Nitrogen 10 mg/dL (7-20) Creatinine 0.8 mg/dL (0.6-1.0) Estimated GFR (Cockcroft-Gault) 105.8 BUN/Creatinine Ratio 13 (6-20) Glucose Level 79 mg/dL (70-99) Calcium Level 8.8 mg/dL (8.5-10.1) Magnesium Level 2.0 mg/dL (1.8-2.4) Total Bilirubin 0.9 mg/dL (0.2-1.0) Aspartate Amino Transferase (AST) 13 U/L (15-37) L Alanine Aminotransferase (ALT) 19 U/L (14-59) Alkaline Phosphatase 124 U/L (46-116) H Creatine Kinase 43 U/L (26-192) Creatine Kinase MB (Mass) 0.7 ng/mL (0.0-3.6) Creatine Kinase MB Relative Index % (0-4) Troponin I Quantitative < 0.017 ng/mL (0.000-0.055) BX-Ezy-C-Type Natriuretic Peptide 34 pg/mL (0-124) Total Protein 7.8 g/dL (6.4-8.2) Albumin 3.5 g/dL (3.4-5.0) Albumin/Globulin Ratio 0.8 (1.0-1.7) L Thyroid Stimulating Hormone (TSH) 1.043 uIU/mL (0.358-3.74) Urine Collection Type Unknown Urine Color Yellow Urine Clarity Clear Urine pH 7.0 Urine Specific Alpine 1.015 Urine Protein Negative mg/dL (NEG-TRACE) Urine Glucose (UA) Negative mg/dL (NEG) Urine Ketones (Stick) Trace mg/dL (NEG) Urine Blood Large (NEG) Urine Nitrite Negative (NEG) Urine Bilirubin Negative (NEG) Urine Urobilinogen Dipstick 1.0 mg/dL (0.2 mg/dL) Urine Leukocyte Esterase Large (NEG) Urine RBC 1-2 /HPF (0-2) Urine WBC 11-20 /HPF (0-4) Urine Squamous Epithelial Cells Mod /LPF Urine Bacteria Mod /HPF (0-FEW) Urine Opiates Screen Neg (NEG) Urine Methadone Screen Neg (NEG) Urine Barbiturates Neg (NEG) Urine Phencyclidine Screen Neg (NEG) Urine Amphetamine/Methamphetamine Neg (NEG) Urine Benzodiazepines Screen Neg (NEG) Urine Cocaine Screen Neg (NEG) Urine Cannabinoids Screen Neg (NEG) Urine Ethyl Alcohol Neg (NEG) Laboratory Tests 02/09/19 15:55 Laboratory Tests 02/09/19 15:55 EKG EKG 15:[address] Villalpando sinus rhythm HR 67 no STEMI[] Radiology/Procedures Radiology/Procedures []PROCEDURE: CT ANGIOGRAPHY CHEST Examination: CT angiography chest HISTORY: History of chest pain, shortness of breath COMPARISON: 12/10/2017 TECHNIQUE: Axial CT angiography images of chest were performed with IV contrast. Coronal and sagittal 3-D MIP reformats are performed Exposure: One or more of the following individualized dose reduction techniques were utilized for this examination: 1. Automated exposure control 2. Adjustment of the mA and/or kV according to patient size 3. Use of iterative reconstruction technique FINDINGS: The visualized thyroid grossly appears unremarkable. The central airways are patent. The heart size grossly appears unremarkable. The caliber of the aorta grossly appears unremarkable. There is no evidence of filling defect identified in the main pulmonary arterial trunk and right and left main pulmonary arteries. The evaluation the distal lobar, segmental branches of the pulmonary arteries is limited due to lack of IV contrast within these branches. Minimal atelectasis left lung base. The visualized liver, grossly appears unremarkable. Faint ill-defined hypodensity identified in the posterior spleen, nonspecific. No evidence of lytic bony destructive lesion. IMPRESSION: 1. No evidence of central pulmonary embolism. The evaluation the distal lobar, segmental branches of the pulmonary arteries is limited. 2. Minimal left lung base atelectasis. 3. Minimal ill-defined hypodensity identified in the posterior spleen, difficult to evaluate. Electronically signed by: Ivan Scales MD (02/09/2019 4:46 PM) [facility] DICTATED and SIGNED BY: IVAN SCALES MD DATE: 02/09/19 2762 Course & Med Decision Making Course & Med Decision Making Pertinent Labs and Imaging studies reviewed. (See chart for details) This is a 23-year-old female patient with no significant medical history pr esenting today complaining of left-sided chest pain, shortness of breath, left shoulder pain, symptoms for 1 year but got worse in the last 2 weeks after having a vaginal delivery. EKG was negative, CT chest is negative, labs are negative, urine noted for UTI, discharge and cephalexin. Given inhaler for chronic shortness of breath. Instructed to follow-up with [facility] [place] for possible anxiety as well as PCP Lencho Disclaimer Dragon Disclaimer This electronic medical record was generated, in whole or in part, using a voice recognition dictation system. Departure Departure Impression: Primary Impression: UTI (lower urinary tract infection) Additional Impressions: Chronic chest pain Chronic shortness of breath Disposition: HOME, SELF-CARE Condition: STABLE Referrals: NO PCP (PCP) follow up with your own doctor or [facility] Patient Instructions: Shortness of Breath, [id number], Urinary Tract Infection Additional Instructions: You were evaluated in the emergency room for chronic shortness of breath and chest pain. Your workup was negative for any acute findings. Please consider following up with your own primary care doctor as well as [facility] for possible anxiety. You also have urinary tract infection, ensure you complete your antibiotics. Scripts Cephalexin (CEPHALEXIN) 500 Mg Capsule 1 CAP PO QID, #14 CAP Prov: LINH GARCIA HAT FORMER 02/09/19 Albuterol Sulfate (Proventil Hfa) 6.7 Gm Hfa.aer.ad 1 PUFF INH PRN Q6HRS PRN for SHORTNESS OF BREATH, #1 INHALER Prov: LINH GARCIA HAT FORMER 02/09/19 Problem Qualifiers LINH GARCIA APRN Feb 09, 2019 17:55
[2019-02-09 18:00] VITALS: BP 95/51
--- NOTE | 2019-02-10 06:00 | EKG ---
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
== END 2019-02-09 18:12 | disposition home or self-care (01) ==
LOC: ER 15:08
DX: O86.20 Urinary tract infection following delivery, unspecified (principal); R06.02 Shortness of breath; R07.89 Other chest pain; M25.512 Pain in left shoulder; G89.29 Other chronic pain
CPT/HCPCS: 36415; 71275; 80053; 80307; 81001; 82553; 83735; 83880; 84443; 84484; 85025; 85610; 93005; 99285-25

== ENCOUNTER 2019-07-06 14:23 | Emergency (ER) | payer BC ==
[~2019-07-06] VITALS: Ht 172.7 cm; Wt 54.4 kg
[~2019-07-06 14:23] MED LIST changes: +CEPH500C PO; +PROVENTIL HFA6.7 G2 INH
--- NOTE | 2019-07-06 15:27 | PHYS DOC ---
Past Medical History Past Medical History: No Pertinent History Additional Past Medical Histor: ETOH ABUSE Past Surgical History: No Surgical History Alcohol Use: None Drug Use: None Adult General Chief Complaint Chief Complaint: VAGINAL BLEEDING HPI HPI Patient is a 24 year old female patient with history of medical problem who presents with complaint of vaginal bleeding during . Patient is A2 with LMP of May 25 with positive home and complaining of vag inal bleeding that started 4 days ago and getting heavier today. Patient denies passing tissue and blood clots, headache, palpitations, abdominal pain, nausea vomiting, fever and chills, urinary symptom. Review of Systems Review of Systems Constitutional: Denies fever or chills [] Eyes: Denies change in visual acuity, redness, or eye pain [] HENT: Denies nasal congestion or sore throat [] Respiratory: Denies cough or shortness of breath [] Cardiovascular: No additional information not addressed in HPI [] GI: Denies abdominal pain, nausea, vomiting, bloody stools or diarrhea [] : Denies dysuria or hematuria [] Musculoskeletal: Denies back pain or joint pain [] Integument: Denies rash or skin lesions [] Neurologic: Denies headache, focal weakness or sensory changes [] Endocrine: Denies polyuria or polydipsia [] All other systems were reviewed and found to be within normal limits, except as documented in this note. Current Medications Current Medications Current Medications Medications (Trade) Dose Ordered Sig/Cecille Start Time Stop Time Status Last Admin Dose Admin Sodium Chloride 1,000 ml @ 1,000 mls/hr Q1H 07/06/19 15:32 07/06/19 16:31 DC 07/06/19 15:50 1,000 MLS/HR Allergies Allergies Allergies Coded Allergies Type Severity Reaction Last Updated Verified No Known Drug Allergies 01/26/19 No Physical Exam Physical Exam Constitutional: Well developed, well nourished, no acute distress, non-toxic appearance. [] HENT: Normocephalic, atraumatic, bilateral external ears normal, oropharynx moist, no oral exudates, nose normal. [] Eyes: PERRLA, EOMI, conjunctiva normal, no discharge. [] Neck: Normal range of motion, no tenderness, supple, no stridor. [] Cardiovascular:Heart rate regular rhythm, no murmur [] Lungs & Thorax: Bilateral breath sounds clear to auscultation [] Abdomen: Bowel sounds normal, soft, no tenderness, no masses, no pulsatile masses. Patient did not want to have vaginal exam. Skin: Warm, dry, no erythema, no rash. [] Back: No tenderness, no CVA tenderness. [] Extremities: No tenderness, no cyanosis, no clubbing, ROM intact, no edema. [] Neurologic: Alert and oriented X 3, normal motor function, normal sensory function, no focal deficits noted. [] Psychologic: Affect normal, judgement normal, mood normal. [] Current Patient Data Vital Signs Vital Signs Date Time Temp Pulse Resp B/P (MAP) Pulse Ox O2 Delivery O2 Flow Rate FiO2 07/06/19 14:45 98.0 69 16 99/49 (66) 100 Room Air 98.0 Lab Values Laboratory Tests Test 07/06/19 14:50 07/06/19 15:50 Urine Test Positive (NEG) White Blood Count 4.6 x10^3/uL (4.0-11.0) Red Blood Count 3.86 x10^6/uL (3.50-5.40) Hemoglobin 11.3 g/dL (12.0-15.5) L Hematocrit 34.0 % (36.0-47.0) L Mean Corpuscular Volume 88 fL (79-100) Mean Corpuscular Hemoglobin 29 pg (25-35) Mean Corpuscular Hemoglobin Concent 33 g/dL (31-37) Red Cell Distribution Width 14.4 % (11.5-14.5) Platelet Count 199 x10^3/uL (140-400) Neutrophils (%) (Auto) 62 % (31-73) Lymphocytes (%) (Auto) 22 % (24-48) L Monocytes (%) (Auto) 13 % (0-9) H Eosinophils (%) (Auto) 3 % (0-3) Basophils (%) (Auto) 1 % (0-3) Neutrophils # (Auto) 2.9 x10^3/uL (1.8-7.7) Lymphocytes # (Auto) 1.0 x10^3/uL (1.0-4.8) Monocytes # (Auto) 0.6 x10^3/uL (0.0-1.1) Eosinophils # (Auto) 0.1 x10^3/uL (0.0-0.7) Basophils # (Auto) 0.0 x10^3/uL (0.0-0.2) Maternal Serum HCG Beta Subunit 59061 mIU/mL (0-5) H Sodium Level 138 mmol/L (136-145) Potassium Level 4.2 mmol/L (3.5-5.1) Chloride Level 105 mmol/L (98-107) Carbon Dioxide Level 28 mmol/L (21-32) Anion Gap 5 (6-14) L Blood Urea Nitrogen 11 mg/dL (7-20) Creatinine 0.6 mg/dL (0.6-1.0) Estimated GFR (Cockcroft-Gault) 146.2 Glucose Level 79 mg/dL (70-99) Calcium Level 9.0 mg/dL (8.5-10.1) Laboratory Tests 07/06/19 15:50 Laboratory Tests 07/06/19 15:50 EKG EKG [] Radiology/Procedures Radiology/Procedures [][facility] [address] [place], [place] [id number] IMAGING REPORT Signed PATIENT: NORA CHEATHAM ACCOUNT: [id number] : 1995 LOCATION: ER AGE: 24 SEX: F EXAM STATUS: REG ER ORD. PHYSICIAN: APRIL MIRANDA MD REASON: vaginal bleeding during PROCEDURE: OB <14 WKS W/TV Study: OB <14 WKS W/TV DATE: 07/06/2019 3:32 PM INDICATION: Vaginal bleeding. Known . COMPARISON: 09/27/2018. TECHNIQUE: Transabdominal and transvaginal ultrasonography of the pelvis was performed. Color Doppler and duplex were utilized as appropriate. FINDINGS: The uterus is measured at 10.1 x 6.6 x 7.3 cm. Intrauterine gestational sac containing a pole and yolk sac. [place]-rump length is measured at 0.42 cm. heart tones are detected at 118 bpm. Prominent subchorionic hemorrhage is present and measured at 4.0 x 2.6 x 3.5 cm. The right ovary measures 3.4 x 2.7 x 3.6 cm. The left ovary measures 2.6 x 1.3 x 2.7 cm. Doppler flow is maintained to both ovaries. Complex right ovarian cystic structure measured at 2.5 x 2.2 x 3.0 cm. Avascular heterogeneously hypoechoic material adherent to the wall of this cyst. Congested pelvic veins on the right more so than left. Scattered nabothian cysts. IMPRESSION: 1. Single live intrauterine with an estimated gestational age by crown-rump length of 6 weeks 1 day. heart rate is somewhat low at 118 bpm and there is a prominent subchorionic hemorrhage measuring up to 4 cm. Short-term follow-up is needed to determine the trajectory of this especially given vaginal bleeding. 2. Complex cystic structure at the right ovary measuring up to 3 cm. There is heterogeneous hypoechoic material adherent to the wall and this could represent a hemorrhagic cyst. Attention on follow-up is recommended as well. 3. Normal Doppler flow to both ovaries. Electronically signed by: KIMMY NAVARRETE MD (07/06/2019 4:47 PM) [facility] DICTATED and SIGNED BY: KIMMY NAVARRETE MD DATE: 07/06/19 7257 Course & Med Decision Making Course & Med Decision Making Pertinent Labs and Imaging studies reviewed. (See chart for details) Evaluation of patient in ER showed 24-year-old female patient with complaining of vaginal bleeding during . Patient had a states she developed more than [id number] with single livable intrauterine . Patient was advised to follow up with her [facility] [employer] for repeat hCG in 2 days and have pelvic rest and increase fluid intake. She has blood type of O+. I've spoken with the patient and/or caregivers. I've explained the patient's condition, diagnosis and treatment plan based on information available to me at this time. I've answered the patient's and/or caregivers questions and addressed any concerns. The patient and/or caregivers have a good understanding the patient's diagnosis, condition and treatment plan as can be expected at this point. Vital signs have been stabilized. The patient's condition is stable for discharge from the emergency department. The patient will pursue further outpatient evaluation with her primary care provider or other designated consulting physician as outlined in the discharge instructions. Patient and/or caregivers are agreeable to this plan of care and follow-up instructions have been explained in detail. The patient and/or caregivers have received these instructions in written format and expressed understanding of these discharge instructions. The patient and her caregivers are aware that if any significant change in condition or worsening of symptoms should prompt him to immediately return to this of the closest emergency department. If an emergent department is not readily available I would encou rage him to call 911. Lencho Disclaimer Dragon Disclaimer This electronic medical record was generated, in whole or in part, using a voice recognition dictation system. Departure Departure Impression: Primary Impression: Threatened Disposition: HOME, SELF-CARE (1700) Condition: STABLE Referrals: UNKNOWN PCP NAME (PCP) RICCO GARCIA Jr, MD Patient Instructions: Threatened Miscarriage Additional Instructions: Drink plenty of liquids Follow-up with your [facility] in 48 hours for repeat the blood test [place]( [place] [address]) Return to ER if not getting better APRIL MIRANDA MD Jul 06, 2019 15:27
[2019-07-06 15:30] LABS: U PREG PATIENT POSITIVE (NEG)
[2019-07-06] MEDS ORDERED: IV NORMAL SALINE 1000ML BAG 1,000 ML IV SCH (15:32)
[2019-07-06 16:10] LABS: BASO % 1 % (0-3); EOS # 0.1 x10^3/uL (0.0-0.7); EOS % 3 % (0-3); HEMOGLOBIN 11.3 g/dL (12.0-15.5); LYMPH % 22 % (24-48); MEAN CORPUSCULAR HEMOGLOBIN 29 pg (25-35); MEAN CORPUSCULAR HGB CONC 33 g/dL (31-37); MEAN CORPUSCULAR VOLUME 88 fL (79-100); MONO # 0.6 x10^3/uL (0.0-1.1); MONO % 13 % (0-9); NEUT # 2.9 x10^3/uL (1.8-7.7); NEUT % 62 % (31-73); PLATELET COUNT 199 x10^3/uL (140-400); RED BLOOD COUNT 3.86 x10^6/uL (3.50-5.40); RED CELL DISTRIBUTION WIDTH 14.4 % (11.5-14.5); WHITE BLOOD COUNT 4.6 x10^3/uL (4.0-11.0)
[2019-07-06 16:24] LABS: CREATININE 0.6 mg/dL (0.6-1.0); GFR 146.2; POTASSIUM 4.2 mmol/L (3.5-5.1)
--- NOTE | 2019-07-06 16:49 | RAD ---
Study: OB <14 WKS W/TV DATE: 07/06/2019 3:32 PM INDICATION: Vaginal bleeding. Known . COMPARISON: 09/27/2018. TECHNIQUE: Transabdominal and transvaginal ultrasonography of the pelvis was performed. Color Doppler and duplex were utilized as appropriate. FINDINGS: The uterus is measured at 10.1 x 6.6 x 7.3 cm. Intrauterine gestational sac containing a pole and yolk sac. [place]-rump length is measured at 0.42 cm. heart tones are detected at 118 bpm. Prominent subchorionic hemorrhage is present and measured at 4.0 x 2.6 x 3.5 cm. The right ovary measures 3.4 x 2.7 x 3.6 cm. The left ovary measures 2.6 x 1.3 x 2.7 cm. Doppler flow is maintained to both ovaries. Complex right ovarian cystic structure measured at 2.5 x 2.2 x 3.0 cm. Avascular heterogeneously hypoechoic material adherent to the wall of this cyst. Congested pelvic veins on the right more so than left. Scattered nabothian cysts. IMPRESSION: 1. Single live intrauterine with an estimated gestational age by crown-rump length of 6 weeks 1 day. heart rate is somewhat low at 118 bpm and there is a prominent subchorionic hemorrhage measuring up to 4 cm. Short-term follow-up is needed to determine the trajectory of this especially given vaginal bleeding. 2. Complex cystic structure at the right ovary measuring up to 3 cm. There is heterogeneous hypoechoic material adherent to the wall and this could represent a hemorrhagic cyst. Attention on follow-up is recommended as well. 3. Normal Doppler flow to both ovaries. Electronically signed by: KIMMY NAVARRETE MD (07/06/2019 4:47 PM) [facility]
[2019-07-06 17:20] VITALS: BP 102/61
== END 2019-07-06 17:25 | disposition home or self-care (01) ==
LOC: ER 14:23
DX: O20.0 Threatened abortion (principal); Z3A.01 Less than 8 weeks gestation of pregnancy; F10.21 Alcohol dependence, in remission
CPT/HCPCS: 36415; 76801; 76817; 80048; 81025; 84702; 85025; 99285; J7030

== ENCOUNTER → 2019-09-09 | Outpatient (CLI) | payer BC ==
[2019-09-09 10:05] LABS: AMPHETAMINE/METHAMPHETAMINE NEG (NEG); BARBITURATES NEG (NEG); BENZODIAZEPINES NEG (NEG); CANNABINOIDS NEG (NEG); COCAINE NEG (NEG); METHADONE NEG (NEG); OPIATES NEG (NEG); PHENCYCLIDINE NEG (NEG)
[2019-09-09 10:13] LABS: BASO % 0 % (0-3); EOS # 0.1 x10^3/uL (0.0-0.7); EOS % 1 % (0-3); HEMATOCRIT 35.4 % (36.0-47.0); HEMOGLOBIN 11.8 g/dL (12.0-15.5); LYMPH % 15 % (24-48); MEAN CORPUSCULAR HEMOGLOBIN 30 pg (25-35); MEAN CORPUSCULAR HGB CONC 33 g/dL (31-37); MEAN CORPUSCULAR VOLUME 91 fL (79-100); MONO # 0.4 x10^3/uL (0.0-1.1); MONO % 7 % (0-9); NEUT # 5.2 x10^3/uL (1.8-7.7); NEUT % 77 % (31-73); PLATELET COUNT 183 x10^3/uL (140-400); RED CELL DISTRIBUTION WIDTH 14.5 % (11.5-14.5); WHITE BLOOD COUNT 6.7 x10^3/uL (4.0-11.0)
[2019-09-09 10:17] LABS: ALBUMIN 3.1 g/dL (3.4-5.0); ALBUMIN/GLOBULIN RATIO 0.8 (1.0-1.7); CALCIUM 8.5 mg/dL (8.5-10.1); CREATININE 0.5 mg/dL (0.6-1.0); GFR 180.5; POTASSIUM 3.8 mmol/L (3.5-5.1); TOTAL BILIRUBIN 0.5 mg/dL (0.2-1.0); TOTAL PROTEIN 6.8 g/dL (6.4-8.2)
[2019-09-11 19:09] LABS: ANA INTERP Negative (.)
== END | disposition home or self-care (01) ==
LOC: LAB 09:12
PROVIDERS: ATTEND Psychiatry & Neurology Neurology
DX: L29.9 Pruritus, unspecified (principal); R20.2 Paresthesia of skin; B00.9 Herpesviral infection, unspecified; Z79.899 Other long term (current) drug therapy
CPT/HCPCS: 36415; 80053; 80307; 84443; 85025; 86038; 86803; 87340

== ENCOUNTER 2019-09-15 09:11 | Emergency (ER) | payer BC ==
[~2019-09-15] VITALS: Ht 172.7 cm; Wt 58.1 kg
[2019-09-15 10:26] LABS: BILIRUBIN,URINE NEGATIVE (NEG); CLARITY,URINE CLEAR; COLOR,URINE YELLOW; NITRITE,URINE NEGATIVE (NEG); PH,URINE 6.5; PROTEIN,URINE NEGATIVE (NEG-TRACE)
--- NOTE | 2019-09-15 10:38 | PHYS DOC ---
Past Medical History Past Medical History: No Pertinent History Additional Past Medical Histor: ETOH ABUSE (LINH GARCIA APRN) Past Surgical History: No Surgical History (LINH GARCIA APRN) Smoking Status: Never Smoker Alcohol Use: None Drug Use: None (LINH GARCIA APRN) Adult General Chief Complaint Chief Complaint: VAGINAL BLEEDING [facility] Patient is a 24 year old female 6 para 3, 2 abortions, who presents to the ED today complaining of vaginal bleeding in that began a week ago. Patient reports being 15 weeks . Patient reports using 1 feminine pad every 24 hours. She reports the bleeding is worse at night. Denies any trauma. Denies any abdominal pain. Denies any concerns for STDs. [employer]LINE CAP[employer] Dr. More (LINH GARCIA APRN) Review of Systems Review of Systems Constitutional: Denies fever or chills [] Eyes: Denies change in visual acuity, redness, or eye pain [] HENT: Denies nasal congestion or sore throat [] Respiratory: Denies cough or shortness of breath [] Cardiovascular: No additional information not addressed in HPI [] GI: Reports vaginal bleeding in . Denies abdominal pain, nausea, vomiting, bloody stools or diarrhea [] : Denies dysuria or hematuria [] Musculoskeletal: Denies back pain or joint pain [] Integument: Denies rash or skin lesions [] Neurologic: Denies headache, focal weakness or sensory changes [] All other systems were reviewed and found to be within normal limits, except as documented in this note. (LINH GARCIA APRN) Allergies Allergies Allergies Coded Allergies Type Severity Reaction Last Updated Verified No Known Drug Allergies 01/26/19 No (BLANE SIERRA DO) Physical Exam Physical Exam Constitutional: Well developed, well nourished, no acute distress, non-toxic appearance. [] HENT: Normocephalic, atraumatic, bilateral external ears normal, oropharynx moist, no oral exudates, nose normal. [] Eyes: PERRLA, EOMI, conjunctiva normal, no discharge. [] Neck: Normal range of motion, no tenderness, supple, no stridor. [] Cardiovascular:Heart rate regular rhythm, no murmur [] Lungs & Thorax: Bilateral breath sounds clear to auscultation [] Abdomen: Bowel sounds normal, soft, no tenderness, no masses, no pulsatile masses. [] Pelvic exam External pelvic appears normal, cervix is visualized, closed, no CMT, no adnexal tenderness, no bleeding noted, moderate amount of greenish discharge in the vaginal vault. Skin: Warm, dry, no erythema, no rash. [] Back: No tenderness, no CVA tenderness. [] Extremities: No tenderness, no cyanosis, no clubbing, ROM intact, no edema. [] Neurologic: Alert and oriented X 3, normal motor function, normal sensory function, no focal deficits noted. [] Psychologic: Affect normal, judgement normal, mood normal. [] (LINH GARCIA APRN) Current Patient Data Vital Signs Vital Signs Date Time Temp Pulse Resp B/P (MAP) Pulse Ox O2 Delivery O2 Flow Rate FiO2 09/15/19 10:49 98.6 74 16 95/53 (67) 100 Room Air 98.6 (SIERRA,BLANE R DO) Lab Values Laboratory Tests Test 09/15/19 09:56 09/15/19 10:00 09/15/19 11:59 Urine Collection Type Unknown Urine Color Yellow Urine Clarity Clear Urine pH 6.5 Urine Specific [place] 1.025 Urine Protein Negative mg/dL (NEG-TRACE) Urine Glucose (UA) Negative mg/dL (NEG) Urine Ketones (Stick) 15 mg/dL (NEG) Urine Blood Negative (NEG) Urine Nitrite Negative (NEG) Urine Bilirubin Negative (NEG) Urine Urobilinogen Dipstick 1.0 mg/dL (0.2 mg/dL) Urine Leukocyte Esterase Small (NEG) Urine RBC Occ /HPF (0-2) Urine WBC 1-4 /HPF (0-4) Urine Squamous Epithelial Cells Few /LPF Urine Bacteria Few /HPF (0-FEW) Urine Mucus Mod /LPF Urine Opiates Screen Neg (NEG) Urine Methadone Screen Neg (NEG) Urine Barbiturates Neg (NEG) Urine Phencyclidine Screen Neg (NEG) Urine Amphetamine/Methamphetamine Neg (NEG) Urine Benzodiazepines Screen Neg (NEG) Urine Cocaine Screen Neg (NEG) Urine Cannabinoids Screen Neg (NEG) Urine Ethyl Alcohol Neg (NEG) POC Urine HCG, Qualitative Hcg positive (Negative) White Blood Count 6.4 x10^3/uL (4.0-11.0) Red Blood Count 3.73 x10^6/uL (3.50-5.40) Hemoglobin 11.6 g/dL (12.0-15.5) L Hematocrit 33.6 % (36.0-47.0) L Mean Corpuscular Volume 90 fL (79-100) Mean Corpuscular Hemoglobin 31 pg (25-35) Mean Corpuscular Hemoglobin Concent 35 g/dL (31-37) Red Cell Distribution Width 14.2 % (11.5-14.5) Platelet Count 168 x10^3/uL (140-400) Neutrophils (%) (Auto) 74 % (31-73) H Lymphocytes (%) (Auto) 15 % (24-48) L Monocytes (%) (Auto) 8 % (0-9) Eosinophils (%) (Auto) 2 % (0-3) Basophils (%) (Auto) 1 % (0-3) Neutrophils # (Auto) 4.8 x10^3/uL (1.8-7.7) Lymphocytes # (Auto) 1.0 x10^3/uL (1.0-4.8) Monocytes # (Auto) 0.5 x10^3/uL (0.0-1.1) Eosinophils # (Auto) 0.1 x10^3/uL (0.0-0.7) Basophils # (Auto) 0.0 x10^3/uL (0.0-0.2) Maternal Serum HCG Beta Subunit 97111 mIU/mL (0-5) H Sodium Level 140 mmol/L (136-145) Potassium Level 4.1 mmol/L (3.5-5.1) Chloride Level 106 mmol/L (98-107) Carbon Dioxide Level 22 mmol/L (21-32) Anion Gap 12 (6-14) Blood Urea Nitrogen 15 mg/dL (7-20) Creatinine 0.5 mg/dL (0.6-1.0) L Estimated GFR (Cockcroft-Gault) 180.5 BUN/Creatinine Ratio 30 (6-20) H Glucose Level 69 mg/dL (70-99) L Calcium Level 8.3 mg/dL (8.5-10.1) L Total Bilirubin 0.7 mg/dL (0.2-1.0) Aspartate Amino Transferase (AST) 14 U/L (15-37) L Alanine Aminotransferase (ALT) 12 U/L (14-59) L Alkaline Phosphatase 52 U/L (46-116) Total Protein 6.5 g/dL (6.4-8.2) Albumin 2.9 g/dL (3.4-5.0) L Albumin/Globulin Ratio 0.8 (1.0-1.7) L Ethyl Alcohol Level < 10 mg/dL (0-10) Laboratory Tests 09/15/19 11:59 Laboratory Tests 09/15/19 11:59 Microbiology 09/15/19 Wet Prep - Final, Complete (BLANE SIERRA DO) EKG EKG [] (LINH GARCIA APRN) Radiology/Procedures Radiology/Procedures []PROCEDURE: PREG MORE THAN OR EQ TO 14 WKS EXAM: Obstetrics sonogram. HISTORY: Vaginal bleeding. TECHNIQUE: Sonographic imaging of a gravid uterus was performed. COMPARISON: 07/06/2019. FINDINGS: There is a single intrauterine fetus in transverse presentation with a normal heart rate of 137 bpm. There is an anterior grade 0 placenta with marginal placenta previa. The placental edge extends to the internal cervical os. The maternal adnexal regions are unremarkable. There is no pelvic free fluid. The amniotic fluid volume is grossly normal. The cervix is closed and measures 4.2 cm in length. The biparietal diameter is 3.5 cm, corresponding with 16 weeks and 5 days. The head circumference is 13.1 cm, corresponding with 16 weeks and 5 days. The abdominal circumference is 11.2 cm, corresponding with 17 weeks and 0 days. The femoral length is 2.1 cm, corresponding with 16 weeks and 2 days. The estimated gestational age patient combined ultrasound measurements is 16 weeks and 5 days and the estimated due date is 02/25/2020. At the anatomy is not formally assessed. IMPRESSION: 1. Single intrauterine fetus with normal heart rate and gestational age based on ultrasound measurements of 16 weeks and 5 days. A formal anatomy survey can be performed at approximately 20 weeks gestation. 2. Marginal placenta previa. The placental margin extends to the internal cervical os. Attention the time of the formal anatomy scan is recommended. The cervix is long and closed. Electronically signed by: Micki Poe MD (09/15/2019 11:00 AM) [facility] [place] and SIGNED BY: MICKI POE MD DATE: 09/15/19 1100 (LINH GARCIA APRN) Course & Med Decision Making Course & Med Decision Making Pertinent Labs and Imaging studies reviewed. (See chart for details) This is a 24-year-old female patient presenting to the ED today complaining of vaginal bleeding for one week. She reports being 15 weeks . No bleeding noted in the pelvic exam. Urine analysis is noted for small amount of leukocytes, CBC within normal WBC, hemoglobin 11.6, hemoglobin 33.6 OB ultrasound noted for IUP with HR of 137 and placenta previa. Patient elooped from the ED. (LINH GARCIA APRN) Dragon Disclaimer Dragon Disclaimer This electronic medical record was generated, in whole or in part, using a voice recognition dictation system. (LINH GARCIA APRN) Departure Departure Impression: Primary Impression: Vaginal bleeding in Disposition: AGAINST MEDICAL ADVICE Condition: STABLE Referrals: UNKNOWN PCP NAME (PCP) Attending Signature Attending Signature I have reviewed the PA/CONTROLS ENGINEER's note and plan of care. I was available for consultation as needed during the patient's visit in the emergency department. I agree with the clinical impression, plan, and disposition. (BLANE SIERRA DO) LINH GARCIA APRN Sep 15, 2019 10:38 BLANE SIERRA DO Sep 15, 2019 15:32
[2019-09-15 10:49] VITALS: BP 95/53
[2019-09-15 10:56] LABS: BACTERIA,URINE FEW /HPF (0-FEW); RBC,URINE OCC /HPF (0-2); SQUAMOUS EPITHELIAL CELL,UR FEW /LPF
[2019-09-15 11:03] LABS: BARBITURATES NEG (NEG); BENZODIAZEPINES NEG (NEG); CANNABINOIDS NEG (NEG); COCAINE NEG (NEG); METHADONE NEG (NEG); OPIATES NEG (NEG); PHENCYCLIDINE NEG (NEG)
--- NOTE | 2019-09-15 11:03 | RAD ---
EXAM: Obstetrics sonogram. HISTORY: Vaginal bleeding. TECHNIQUE: Sonographic imaging of a gravid uterus was performed. COMPARISON: 07/06/2019. FINDINGS: There is a single intrauterine fetus in transverse presentation with a normal heart rate of 137 bpm. There is an anterior grade 0 placenta with marginal placenta previa. The placental edge extends to the internal cervical os. The maternal adnexal regions are unremarkable. There is no pelvic free fluid. The amniotic fluid volume is grossly normal. The cervix is closed and measures 4.2 cm in length. The biparietal diameter is 3.5 cm, corresponding with 16 weeks and 5 days. The head circumference is 13.1 cm, corresponding with 16 weeks and 5 days. The abdominal circumference is 11.2 cm, corresponding with 17 weeks and 0 days. The femoral length is 2.1 cm, corresponding with 16 weeks and 2 days. The estimated gestational age patient combined ultrasound measurements is 16 weeks and 5 days and the estimated due date is 02/25/2020. At the anatomy is not formally assessed. IMPRESSION: 1. Single intrauterine fetus with normal heart rate and gestational age based on ultrasound measurements of 16 weeks and 5 days. A formal anatomy survey can be performed at approximately 20 weeks gestation. 2. Marginal placenta previa. The placental margin extends to the internal cervical os. Attention the time of the formal anatomy scan is recommended. The cervix is long and closed. Electronically signed by: Micki Conrad MD (09/15/2019 11:00 AM) [facility] – [place]
[2019-09-15 11:04] LABS: AMPHETAMINE/METHAMPHETAMINE NEG (NEG)
[2019-09-15 12:07] LABS: BASO % 1 % (0-3); EOS # 0.1 x10^3/uL (0.0-0.7); EOS % 2 % (0-3); HEMATOCRIT 33.6 % (36.0-47.0); HEMOGLOBIN 11.6 g/dL (12.0-15.5); LYMPH % 15 % (24-48); MEAN CORPUSCULAR HEMOGLOBIN 31 pg (25-35); MEAN CORPUSCULAR HGB CONC 35 g/dL (31-37); MEAN CORPUSCULAR VOLUME 90 fL (79-100); MONO # 0.5 x10^3/uL (0.0-1.1); MONO % 8 % (0-9); NEUT # 4.8 x10^3/uL (1.8-7.7); NEUT % 74 % (31-73); PLATELET COUNT 168 x10^3/uL (140-400); RED BLOOD COUNT 3.73 x10^6/uL (3.50-5.40); RED CELL DISTRIBUTION WIDTH 14.2 % (11.5-14.5); WHITE BLOOD COUNT 6.4 x10^3/uL (4.0-11.0)
[2019-09-15 13:06] LABS: CALCIUM 8.3 mg/dL (8.5-10.1); CREATININE 0.5 mg/dL (0.6-1.0); GFR 180.5; POTASSIUM 4.1 mmol/L (3.5-5.1)
[2019-09-15 13:12] LABS: ALBUMIN 2.9 g/dL (3.4-5.0); ALBUMIN/GLOBULIN RATIO 0.8 (1.0-1.7); TOTAL BILIRUBIN 0.7 mg/dL (0.2-1.0); TOTAL PROTEIN 6.5 g/dL (6.4-8.2)
[2019-09-16 19:09] LABS: GC PROBE Negative (Negative)
== END 2019-09-15 12:34 | disposition left against medical advice (07) ==
LOC: ER 09:16
DX: O46.92 Antepartum hemorrhage, unspecified, second trimester (principal); F10.10 Alcohol abuse, uncomplicated; Z3A.16 16 weeks gestation of pregnancy
CPT/HCPCS: 36415; 76805; 80053; 80307; 81001; 81025; 84702; 85025; 87086; 87491; 87591; 99284; G0480; Q0111

== ENCOUNTER → 2019-10-20 | Outpatient (CLI) | payer BC ==
--- NOTE | 2019-10-20 16:42 | RAD ---
OB ultrasound greater than 14 weeks 10/20/2019 Clinical History: Second trimester . Uterine size date discrepancy. Technique: A real-time ultrasound examination of the gravid uterus was performed. Multiple images were obtained. Findings: Comparison study is dated 09/15/2019. There is a single living IUP. The fetus is in a cephalic position. cardiac and somatic activity is seen. The heart rate is 136 beats per minutes. The maternal cervix is closed. It measures 3.29 cm in length. The placenta is in anterior position. The marginal placenta previa seen on the previous examination has resolved.. No abnormality is seen. The amniotic fluid volume is within the upper limits of normal. The OMAIRA measures 14.1 cm. Neither maternal ovary is visualized. The following measurements were obtained: BPD 5.25cm 22 weeks 0 days HC 19.52 cm 21weeks 5 days AC 16.47 cm 21weeks 4 days FL 3.68 cm 21 weeks 5 days The estimated gestational age by ultrasound is 21 weeks 5 days plus or minus a standard deviation of 10 days. The estimated date of delivery by ultrasound is 02/25/2020. Since the previous examination there has been appropriate interval growth. No abnormality is seen. Specifically the stomach, bladder, kidneys, 3 vessel cord and cord insertion, four-chamber heart, cisterna magna, cerebellum, nose/mouth, spine and extremities are well-visualized and within normal limits. Impression: Single living IUP with an estimated gestational age by ultrasound of 21 weeks 5 days +/- a standard deviation of 10 days. Since the previous examination there has been appropriate interval growth. Electronically signed by: Wilbur Magallanes MD (10/20/2019 4:39 PM) [id number]
== END | disposition home or self-care (01) ==
LOC: US 14:58
PROVIDERS: ATTEND Obstetrics & Gynecology
DX: O26.842 Uterine size-date discrepancy, second trimester (principal); Z3A.21 21 weeks gestation of pregnancy
CPT/HCPCS: 76805

== ENCOUNTER 2020-01-26 08:24 | Observation (INO) | payer BC ==
[2020-01-26] MEDS ORDERED: IV RINGERS,LACTATED 1000ML 1,000 ML IV SCH (08:25)
[2020-01-26] MEDS ORDERED: ONDANSETRON PF 4 MG/2 ML VIAL. IVP PRN (08:30)
[2020-01-26] MEDS ORDERED: ACETAMINOPHEN 325 MG TABLET. PO PRN (08:30)
[2020-01-26 09:16] LABS: BILIRUBIN,URINE NEGATIVE (NEG); CLARITY,URINE CLEAR; COLOR,URINE YELLOW; NITRITE,URINE NEGATIVE (NEG); PH,URINE 7.5 (<5.0-8.0); PROTEIN,URINE NEGATIVE (NEG-TRACE)
[2020-01-26 09:25] LABS: CREATININE,RANDOM URINE 50.3 mg/dL (Not Establ.)
[2020-01-26 09:28] LABS: BARBITURATES NEG (NEG); BENZODIAZEPINES NEG (NEG); CANNABINOIDS NEG (NEG); COCAINE NEG (NEG); METHADONE NEG (NEG); OPIATES NEG (NEG); PHENCYCLIDINE NEG (NEG)
[2020-01-26 09:29] LABS: SQUAMOUS EPITHELIAL CELL,UR MANY /LPF
[2020-01-26 09:30] LABS: AMPHETAMINE/METHAMPHETAMINE NEG (NEG); BACTERIA,URINE MANY /HPF (0-FEW); RBC,URINE OCC /HPF (0-2)
[2020-01-26 10:24] LABS: BASO % 1 % (0-3); EOS # 0.2 x10^3/uL (0.0-0.7); EOS % 2 % (0-3); HEMATOCRIT 29.1 % (36.0-47.0); HEMOGLOBIN 10.1 g/dL (12.0-15.5); LYMPH # 1.3 x10^3/uL (1.0-4.8); LYMPH % 13 % (24-48); MEAN CORPUSCULAR HEMOGLOBIN 31 pg (25-35); MEAN CORPUSCULAR HGB CONC 35 g/dL (31-37); MEAN CORPUSCULAR VOLUME 89 fL (79-100); MONO % 10 % (0-9); NEUT # 7.3 x10^3/uL (1.8-7.7); NEUT % 74 % (31-73); PLATELET COUNT 163 x10^3/uL (140-400); RED BLOOD COUNT 3.29 x10^6/uL (3.50-5.40); RED CELL DISTRIBUTION WIDTH 14.4 % (11.5-14.5); WHITE BLOOD COUNT 9.9 x10^3/uL (4.0-11.0)
[2020-01-26 10:46] LABS: CALCIUM 8.1 mg/dL (8.5-10.1); CREATININE 0.5 mg/dL (0.6-1.0); GFR 180.5; POTASSIUM 3.9 mmol/L (3.5-5.1)
[2020-01-26 10:52] LABS: ALBUMIN 2.5 g/dL (3.4-5.0); ALBUMIN/GLOBULIN RATIO 0.8 (1.0-1.7); TOTAL BILIRUBIN 0.3 mg/dL (0.2-1.0); TOTAL PROTEIN 5.6 g/dL (6.4-8.2)
== END 2020-01-26 11:12 | disposition home or self-care (01) ==
LOC: 3 SO LND 08:24
PROVIDERS: ADMIT Obstetrics & Gynecology; ATTEND Obstetrics & Gynecology
DX: O26.893 Other specified pregnancy related conditions, third trimester (principal); R51 Headache; Z3A.35 35 weeks gestation of pregnancy
CPT/HCPCS: 36415; 80053; 80307; 81001; 82570; 84156; 84550; 85025; 87086; G0378; G0379

== ENCOUNTER 2020-02-17 06:47 | Inpatient (IN) | payer BC ==
[~2020-02-17] VITALS: Ht 174 cm; Wt 72.1 kg
[2020-02-17 07:30] VITALS: BP 116/56
[2020-02-17] MEDS ORDERED: TERBUTALINE 1 MG/ML VIAL. SQ PRN (08:00)
[2020-02-17] MEDS ORDERED: OXYTOCIN 30 UNIT/500 ML PREMIX 500 ML IV PRN ×3 (08:00→13:15)
[2020-02-17] MEDS ORDERED: fentaNYL PF VIAL 100 MCG/2 ML VIAL IVP PRN (08:00)
[2020-02-17] MEDS ORDERED: 0.9 % SODIUM CHLORIDE 10 ML DISP.SYRIN. IV PRN ×2 (08:00→13:15)
[2020-02-17] MEDS ORDERED: CITRIC ACID/SODIUM CITRATE 30 ML SOLUTION. PO PRN (08:00)
[2020-02-17] MEDS ORDERED: LIDOCAINE 1% PF 30 ML VIAL. INJ PRN (08:00)
[2020-02-17] MEDS: IV RINGERS,LACTATED 1000ML 1,000 ML IV SCH (08:29)
--- NOTE | 2020-02-17 08:51 | PDOC1 ---
OB - History Hx of Present Care: Good Care Ultrasounds: Normal mid trimester US Obstetrical Complications: None Medical Complications: None Past Family/Social History * Past Medical, Surgical, Family and Obstetric Histories reviewed from chart. Rubella: Immune RPR/VDRL: Negative GBS Status: Negative HBsAG: Negative OB - Chief Complaint & HPI Date of Admission: Date of Admission: Feb 17, 2020 at 06:47 Chief Complaint/History : 6 Para: 3 EGA: 39 Reason for admission: induction of labor Indication for induction: maternal discomfort Admission Nurse Assessment Rev: Yes OB - Admission Exam Physical Exam HEENT: Normal Heart: Regular Rate Lungs: Clear, Equal Abdomen: Gravid, Non tender, Soft Extremities: Edema Reflexes: Normal Cervical Dilatation: 4cm Effacement: 75% Station: -3 Membranes: Intact Heart Rate: Normal Accelerations: Accelerations Present Decelerations: No decelerations Contractions on Admission: None Text A: 39 wks IUP IOL secondary discomforts H/o HSV: no lesions visualized or recent outbreak P: Admit for IOL pitocin. RICCO GARCIA Jr, MD Feb 17, 2020 08:51
[2020-02-17 09:03] LABS: BASO # 0.1 x10^3/uL (0.0-0.2); BASO % 1 % (0-3); EOS # 0.2 x10^3/uL (0.0-0.7); EOS % 2 % (0-3); HEMATOCRIT 29.3 % (36.0-47.0); HEMOGLOBIN 9.9 g/dL (12.0-15.5); LYMPH # 1.5 x10^3/uL (1.0-4.8); LYMPH % 12 % (24-48); MEAN CORPUSCULAR HEMOGLOBIN 30 pg (25-35); MEAN CORPUSCULAR HGB CONC 34 g/dL (31-37); MEAN CORPUSCULAR VOLUME 88 fL (79-100); MONO # 0.9 x10^3/uL (0.0-1.1); MONO % 7 % (0-9); NEUT # 9.6 x10^3/uL (1.8-7.7); NEUT % 77 % (31-73); PLATELET COUNT 179 x10^3/uL (140-400); RED BLOOD COUNT 3.34 x10^6/uL (3.50-5.40); RED CELL DISTRIBUTION WIDTH 14.6 % (11.5-14.5); WHITE BLOOD COUNT 12.4 x10^3/uL (4.0-11.0)
[2020-02-17] MEDS ORDERED: L&D EPIDURAL SYRINGE 50 ML ONE ×2 (09:06→12:17)
[2020-02-17] MEDS ORDERED: ROPIVacaine 0.2% PF 10 ML VIAL. ONE ×2 (09:06→10:00)
[2020-02-17] MEDS ORDERED: L&D EPIDURAL 50 ML SYRINGE. ONE (10:00)
[2020-02-17] MEDS ORDERED: ONDANSETRON PF 4 MG/2 ML VIAL. IVP PRN (11:00)
[2020-02-17 11:13] LABS: BILIRUBIN,URINE NEGATIVE (NEG); CLARITY,URINE CLEAR; COLOR,URINE YELLOW; NITRITE,URINE NEGATIVE (NEG); PROTEIN,URINE NEGATIVE (NEG-TRACE); UROBILINOGEN,URINE 0.2 mg/dL (0.2 mg/dL)
[2020-02-17 11:25] LABS: RBC,URINE 0 /HPF (0-2); SQUAMOUS EPITHELIAL CELL,UR FEW /LPF
[2020-02-17 11:26] LABS: BACTERIA,URINE FEW /HPF (0-FEW)
[2020-02-17] MEDS ORDERED: IV RINGERS,LACTATED 1000ML 1,000 ML IV ONE (12:22)
[2020-02-17] MEDS ORDERED: NALOXONE 0.4 MG/ML VIAL. IV PRN (12:30)
[2020-02-17] MEDS ORDERED: L&D EPIDURAL SYRINGE 50 ML EPID PRN (12:30)
[2020-02-17] MEDS ORDERED: ONDANSETRON PF 4 MG/2 ML VIAL. IV PRN (12:30)
[2020-02-17] MEDS ORDERED: ePHEDrine PF IN SALINE 50 MG/10 ML SYRINGE. IV PRN (12:30)
--- NOTE | 2020-02-17 13:04 | PDOC ---
VAGINAL DELIVERY DATE DATE: 02/17/20 TIME: 13:03 : 6 Para: 4 EGA: 39 VAGINAL DELIVERY: VTX VACCUM ASSISTED: No PLACENTA: Spontaneous 8/9 SEX: Male WEIGHT Weight [ pending ] Nuchal Cord: Yes, Times 1 Amniotic Fluid: Clear PAIN: Epidural EPISIOTOMY: No EXTENSION: No EBL 300 ml COMPLICATIONS none CONDITION pt. stable Signs of Intrauterine Infectio: None Shoulder Dystocia: No RICCO GARCIA Jr, MD Feb 17, 2020 13:04
[2020-02-17] MEDS ORDERED: DOCUSATE SODIUM 100 MG CAPSULE. PO PRN (13:15)
[2020-02-17] MEDS ORDERED: BENZOCAINE 20% TOPICAL AEROSOL SPRAY 57GM CAN. TP PRN (13:15)
[2020-02-17] MEDS ORDERED: MAG HYDROX/ALUMINUM HYD/SIMETH 30 ML ORAL.SUSP PO PRN (13:15)
[2020-02-17] MEDS ORDERED: ZOLPIDEM 5 MG TABLET. PO PRN (13:15)
[2020-02-17] MEDS ORDERED: MMR per PROTOCOL. MC PRN (13:15)
[2020-02-17] MEDS ORDERED: TDaP (Adacel) per PROTOCOL. MC PRN (13:15)
[2020-02-17] MEDS ORDERED: PHENYLEPH/MINERAL OIL/PETROLAT RECTAL OINTMENT TUBE. RC PRN (13:15)
[2020-02-17] MEDS ORDERED: diphenhydrAMINE HCL 25 MG CAPSULE PO PRN (13:15)
[2020-02-17] MEDS ORDERED: ACETAMINOPHEN 325 MG TABLET. PO PRN (13:15)
[2020-02-17] MEDS ORDERED: HYDROCORTISONE 1% TOPICAL OINTMENT 30GM TUBE. TP PRN (13:15)
[2020-02-17] MEDS ORDERED: SIMETHICONE 80 MG TAB.CHEW PO PRN (13:15)
[2020-02-17] MEDS ORDERED: MAGNESIUM HYDROXIDE 2,400 MG/30 ML ORAL.SUSP. PO PRN (13:15)
[2020-02-17] MEDS ORDERED: VALA500T9 PO (14:17)
[2020-02-17] MEDS ORDERED: ASCO100T4 PO (14:17)
[2020-02-17] MEDS ORDERED: PREN1TAB58 PO (14:17)
[2020-02-17 16:10] VITALS: BP 116/56
[2020-02-17] MEDS: IBUPROFEN 400 MG TABLET. PO PRN (19:13)
[2020-02-17] MEDS: FERROUS SULFATE 325 MG TABLET. PO SCH (19:13)
[2020-02-17] MEDS: oxyCODONE/APAP 5/325 1 TAB TABLET PO PRN (20:17)
[2020-02-17 20:23] VITALS: BP 128/63
[2020-02-18] MEDS: oxyCODONE/APAP 5/325 1 TAB TABLET PO PRN ×3 (00:52→16:00)
[2020-02-18 00:55] VITALS: BP 101/61
[2020-02-18 04:08] VITALS: BP 100/44
[2020-02-18 04:23] LABS: BASO # 0.1 x10^3/uL (0.0-0.2); BASO % 0 % (0-3); EOS # 0.3 x10^3/uL (0.0-0.7); EOS % 2 % (0-3); HEMATOCRIT 27.7 % (36.0-47.0); HEMOGLOBIN 9.4 g/dL (12.0-15.5); LYMPH # 1.9 x10^3/uL (1.0-4.8); LYMPH % 12 % (24-48); MEAN CORPUSCULAR HEMOGLOBIN 30 pg (25-35); MEAN CORPUSCULAR HGB CONC 34 g/dL (31-37); MEAN CORPUSCULAR VOLUME 88 fL (79-100); MONO # 1.8 x10^3/uL (0.0-1.1); MONO % 11 % (0-9); NEUT # 11.8 x10^3/uL (1.8-7.7); NEUT % 75 % (31-73); PLATELET COUNT 171 x10^3/uL (140-400); RED BLOOD COUNT 3.16 x10^6/uL (3.50-5.40); RED CELL DISTRIBUTION WIDTH 14.7 % (11.5-14.5); WHITE BLOOD COUNT 15.7 x10^3/uL (4.0-11.0)
[2020-02-18] MEDS ORDERED: MORPHINE SULFATE 2 MG/ML VIAL. IV PRN (07:00)
[2020-02-18] MEDS ORDERED: LIDOCAINE 1% PF 2 ML VIAL. ID PRN (07:00)
[2020-02-18] MEDS ORDERED: fentaNYL PF VIAL 100 MCG/2 ML VIAL IV PRN ×2 (07:00)
[2020-02-18] MEDS ORDERED: HYDROmorphone 2 MG/ML VIAL IV PRN (07:00)
[2020-02-18] MEDS ORDERED: ONDANSETRON PF 4 MG/2 ML VIAL. IV PRN (07:00)
[2020-02-18] MEDS ORDERED: PROCHLORPERAZINE 10 MG/2 ML VIAL. IV PRN (07:00)
[2020-02-18] MEDS ORDERED: IV RINGERS,LACTATED 1000ML 1,000 ML IV SCH (07:00)
[2020-02-18] MEDS ORDERED: ONDANSETRON PF 4 MG/2 ML VIAL. ONE (11:25)
[2020-02-18] MEDS ORDERED: ROCURONIUM 50 MG/5 ML VIAL. ONE (11:25)
[2020-02-18] MEDS ORDERED: LIDOCAINE 1% PF 5 ML VIAL. ONE (11:25)
[2020-02-18] MEDS ORDERED: DEXAMETHASONE SOD PHOS 4 MG/ML VIAL ONE (11:25)
[2020-02-18] MEDS ORDERED: FAMOTIDINE 20 MG/2 ML VIAL ONE (11:25)
[2020-02-18] MEDS ORDERED: PROPOFOL 10 MG/ML (20ML) VIAL. IV ONE (11:25)
[2020-02-18] MEDS ORDERED: fentaNYL PF VIAL 100 MCG/2 ML VIAL ONE (11:26)
--- NOTE | 2020-02-18 15:45 | NUR ---
Covid test still not resulted so surgery is cancelled for today per DR. More and will be rescheduled for tomorrow.
[2020-02-18] MEDS: MULTIVITAMIN with MINERAL TABLET. PO SCH (15:58)
[2020-02-18] MEDS: IBUPROFEN 400 MG TABLET. PO PRN (15:59)
[2020-02-18] MEDS: FERROUS SULFATE 325 MG TABLET. PO SCH (15:59)
[2020-02-18 16:36] VITALS: BP 97/54
--- NOTE | 2020-02-18 16:58 | PDOC ---
OB Progress Note Date of Service 02/18/20 Time of Evaluation 1655 Notes Pt. feeling well. No complaints. Lab Laboratory Tests Test 02/17/20 07:03 02/17/20 07:30 02/18/20 03:20 Urine Collection Type Unknown Urine Color Yellow Urine Clarity Clear Urine pH 7.0 (<5.0-8.0) Urine Specific [place] 1.010 (1.000-1.030) Urine Protein Negative mg/dL (NEG-TRACE) Urine Glucose (UA) Negative mg/dL (NEG) Urine Ketones (Stick) Negative mg/dL (NEG) Urine Blood Negative (NEG) Urine Nitrite Negative (NEG) Urine Bilirubin Negative (NEG) Urine Urobilinogen Dipstick 0.2 mg/dL (0.2 mg/dL) Urine Leukocyte Esterase Moderate (NEG) Urine RBC 0 /HPF (0-2) Urine WBC 11-20 /HPF (0-4) Urine Squamous Epithelial Cells Few /LPF Urine Bacteria Few /HPF (0-FEW) Urine Mucus Slight /LPF White Blood Count 12.4 x10^3/uL (4.0-11.0) 15.7 x10^3/uL (4.0-11.0) Red Blood Count 3.34 x10^6/uL (3.50-5.40) 3.16 x10^6/uL (3.50-5.40) Hemoglobin 9.9 g/dL (12.0-15.5) 9.4 g/dL (12.0-15.5) Hematocrit 29.3 % (36.0-47.0) 27.7 % (36.0-47.0) Mean Corpuscular Volume 88 fL (79-100) 88 fL (79-100) Mean Corpuscular Hemoglobin 30 pg (25-35) 30 pg (25-35) Mean Corpuscular Hemoglobin Concent 34 g/dL (31-37) 34 g/dL (31-37) Red Cell Distribution Width 14.6 % (11.5-14.5) 14.7 % (11.5-14.5) Platelet Count 179 x10^3/uL (140-400) 171 x10^3/uL (140-400) Neutrophils (%) (Auto) 77 % (31-73) 75 % (31-73) Lymphocytes (%) (Auto) 12 % (24-48) 12 % (24-48) Monocytes (%) (Auto) 7 % (0-9) 11 % (0-9) Eosinophils (%) (Auto) 2 % (0-3) 2 % (0-3) Basophils (%) (Auto) 1 % (0-3) 0 % (0-3) Neutrophils # (Auto) 9.6 x10^3/uL (1.8-7.7) 11.8 x10^3/uL (1.8-7.7) Lymphocytes # (Auto) 1.5 x10^3/uL (1.0-4.8) 1.9 x10^3/uL (1.0-4.8) Monocytes # (Auto) 0.9 x10^3/uL (0.0-1.1) 1.8 x10^3/uL (0.0-1.1) Eosinophils # (Auto) 0.2 x10^3/uL (0.0-0.7) 0.3 x10^3/uL (0.0-0.7) Basophils # (Auto) 0.1 x10^3/uL (0.0-0.2) 0.1 x10^3/uL (0.0-0.2) Treponema pallidum Antibody Nonreactive (Nonreactive) Laboratory Tests Test 02/18/20 03:20 White Blood Count 15.7 x10^3/uL (4.0-11.0) Red Blood Count 3.16 x10^6/uL (3.50-5.40) Hemoglobin 9.4 g/dL (12.0-15.5) Hematocrit 27.7 % (36.0-47.0) Mean Corpuscular Volume 88 fL (79-100) Mean Corpuscular Hemoglobin 30 pg (25-35) Mean Corpuscular Hemoglobin Concent 34 g/dL (31-37) Red Cell Distribution Width 14.7 % (11.5-14.5) Platelet Count 171 x10^3/uL (140-400) Neutrophils (%) (Auto) 75 % (31-73) Lymphocytes (%) (Auto) 12 % (24-48) Monocytes (%) (Auto) 11 % (0-9) Eosinophils (%) (Auto) 2 % (0-3) Basophils (%) (Auto) 0 % (0-3) Neutrophils # (Auto) 11.8 x10^3/uL (1.8-7.7) Lymphocytes # (Auto) 1.9 x10^3/uL (1.0-4.8) Monocytes # (Auto) 1.8 x10^3/uL (0.0-1.1) Eosinophils # (Auto) 0.3 x10^3/uL (0.0-0.7) Basophils # (Auto) 0.1 x10^3/uL (0.0-0.2) Medications Current Medications Sodium Chloride (Normal Saline Flush) 3 ml QSHIFT PRN IV AFTER MEDS AND BLOOD DRAWS; Start 02/17/20 at 08:00 Ringer's Solution 1,000 ml @ 125 mls/hr Q8H IV Last administered on 02/17/20at 08:29; Start 02/17/20 at 08:00 Fentanyl Citrate (Fentanyl 2ml Vial) 100 mcg PRN Q30MIN PRN IVP Severe pain; Start 02/17/20 at 08:00 Citric Acid/ Sodium Citrate (Bicitra) 30 ml 1X PRN PRN PO DYSPEPSIA; Start 02/17/20 at 08:00; Stop 02/18/20 at 07:59; Status DC Terbutaline Sulfate (Brethine) 0.25 mg 1X PRN PRN SQ SEE COMMENTS; Start 02/17/20 at 08:00; Stop 02/18/20 at 07:59; Status DC Lidocaine HCl (Xylocaine 1% Pf 30ml Vial) 30 ml 1X PRN PRN INJ SEE COMMENTS; Start 02/17/20 at 08:00; Stop 02/19/20 at 07:59 Oxytocin/Sodium Chloride 500 ml @ 0 mls/hr CONT PRN IV SEE I/O RECORD Last administered on 02/17/20at 08:31; Start 02/17/20 at 08:00 Oxytocin/Sodium Chloride 500 ml @ 0 mls/hr CONT PRN PRN IV Post delivery bleeding; Start 02/17/20 at 08:00 Ibuprofen (Motrin) 800 mg PRN Q6HRS PRN PO PAIN Last administered on 02/18/20at 15:59; Start 02/17/20 at 08:00 Ropivacaine (Naropin 0.2%) 10 ml STK-MED ONCE .ROUTE ; Start 02/17/20 at 09:06; Stop 02/17/20 at 09:07; Status DC Fentanyl Citrate 50 ml @ As Directed STK-MED ONCE .ROUTE ; Start 02/17/20 at 09:06; Stop 02/17/20 at 09:07; Status DC Ondansetron HCl (Zofran) 4 mg PRN Q6HRS PRN IVP NAUSEA/VOMITING Last administered on 02/17/20at 11:00; Start 02/17/20 at 11:00 Fentanyl Citrate 50 ml @ As Directed STK-MED ONCE .ROUTE ; Start 02/17/20 at 12:17; Stop 02/17/20 at 12:17; Status DC Ringer's Solution 1,000 ml @ 0 mls/hr Q0M ONCE IV ; Start 02/17/20 at 12:22; Stop 02/17/20 at 12:25; Status DC Ephedrine Sulfate (ePHEDrine PF IN SALINE SYRINGE) 10 mg PRN Q2MIN PRN IV IF SBP<90; Start 02/17/20 at 12:30 Naloxone HCl (Narcan) 0.04 mg PRN Q1MIN PRN IV SEE COMMENTS; Start 02/17/20 at 12:30 Fentanyl Citrate 50 ml @ 14 mls/hr CONT PRN EPID PAIN; Start 02/17/20 at 12:30 Ondansetron HCl (Zofran) 4 mg PRN Q6HRS PRN IV NAUSEA/VOMITING; Start 02/17/20 at 12:30 Sodium Chloride (Normal Saline Flush) 10 ml QSHIFT PRN IV AFTER MEDS AND BLOOD DRAWS; Start 02/17/20 at 13:15 Oxytocin/Sodium Chloride 500 ml @ 62.5 mls/hr CONT PRN IV SEE I/O RECORD; Start 02/17/20 at 13:15; Stop 02/17/20 at 21:14; Status DC Acetaminophen (Tylenol) 650 mg PRN Q6HRS PRN PO MILD PAIN / TEMP > 100.3'F; Start 02/17/20 at 13:15 Ibuprofen (Motrin) 800 mg PRN Q8HRS PRN PO INFLAMMATION/PAIN PREVENTION; Start 02/17/20 at 13:15 Docusate Sodium (Colace) 100 mg PRN BID PRN PO HARD STOOL Last administered on 02/18/20at 15:58; Start 02/17/20 at 13:15 Magnesium Hydroxide (Milk Of Magnesia) 2,400 mg PRN DAILY PRN PO CONSTIPATION; Start 02/17/20 at 13:15 Al Hydroxide/Mg Hydroxide (Mylanta Plus Xs) 30 ml PRN Q4HRS PRN PO HEARTBURN / GAS; Start 02/17/20 at 13:15 Simethicone (Gas-X) 80 mg PRN AFTMEALHC PRN PO GAS / BLOATING; Start 02/17/20 at 13:15 Diphenhydramine HCl (Benadryl) 25 mg PRN Q6HRS PRN PO ITCHING; Start 02/17/20 at 13:15 Benzocaine (Americaine) 1 spray PRN QID PRN TP TOPICAL PAIN; Start 02/17/20 at 13:15 Phenyleph/Shark Oil/Min Oil/Petrol (Preparation H) 1 vern PRN QID PRN RC RECTAL PAIN; Start 02/17/20 at 13:15 Hydrocortisone (Cortaid) 1 vern PRN QID PRN TP PERINEAL PAIN; Start 02/17/20 at 13:15 Ferrous Sulfate (Feosol) 325 mg BIDWMEALS PO Last administered on 02/18/20at 15:59; Start 02/18/20 at 08:00 Zolpidem Tartrate (Ambien) 5 mg PRN QHS PRN PO INSOMNIA, MAY REPEAT X1; Start 02/17/20 at 13:15 Info (Do NOT chart on this placeholder) 1 ea 1X PRN PRN MC SEE COMMENTS; Start 02/17/20 at 13:15 Info (Do NOT chart on this placeholder) 1 ea 1X PRN PRN MC SEE COMMENTS; Start 02/17/20 at 13:15 Oxycodone/ Acetaminophen (Percocet 5/325) 2 tab PRN Q4HRS PRN PO MODERATE PAIN, SEVERE PAIN Last administered on 02/18/20at 16:00; Start 02/17/20 at 13:15 Multivitamins (Thera M Plus) 1 tab DAILY PO Last administered on 02/18/20at 15:58; Start 02/18/20 at 09:00 Ondansetron HCl (Zofran) 4 mg PRN Q6HRS PRN IV NAUSEA/VOMITING; Start 02/18/20 at 07:00; Stop 02/19/20 at 06:59 Fentanyl Citrate (Fentanyl 2ml Vial) 25 mcg PRN Q5MIN PRN IV MILD PAIN 1-3; Start 02/18/20 at 07:00; Stop 02/19/20 at 06:59 Fentanyl Citrate (Fentanyl 2ml Vial) 50 mcg PRN Q5MIN PRN IV MODERATE TO SEVERE PAIN; Start 02/18/20 at 07:00; Stop 02/19/20 at 06:59 Morphine Sulfate (Morphine Sulfate) 1 mg PRN Q10MIN PRN IV SEVERE PAIN 7-10; Start 02/18/20 at 07:00; Stop 02/19/20 at 06:59 Ringer's Solution 1,000 ml @ 30 mls/hr Q24H IV ; Start 02/18/20 at 07:00; Stop 02/18/20 at 18:59 Lidocaine HCl (Xylocaine-Mpf 1% 2ml Vial) 2 ml PRN 1X PRN ID PRIOR TO IV START; Start 02/18/20 at 07:00; Stop 02/19/20 at 06:59 Hydromorphone HCl (Dilaudid) 0.5 mg PRN Q10MIN PRN IV SEV PAIN, Second choice; Start 02/18/20 at 07:00; Stop 02/19/20 at 06:59 Prochlorperazine Edisylate (Compazine) 5 mg PACU PRN PRN IV NAUSEA, MRX1; Start 02/18/20 at 07:00; Stop 02/19/20 at 06:59 Propofol (Diprivan) 200 mg STK-MED ONCE IV ; Start 02/18/20 at 11:25; Stop 02/18/20 at 11:26; Status DC Dexamethasone Sodium Phosphate (Decadron) 4 mg STK-MED ONCE .ROUTE ; Start 02/18/20 at 11:25; Stop 02/18/20 at 11:26; Status DC Famotidine (Pepcid Vial) 20 mg STK-MED ONCE .ROUTE ; Start 02/18/20 at 11:25; Stop 02/18/20 at 11:26; Status DC Lidocaine HCl (Xylocaine-Mpf 1% 5ml Vial) 5 ml STK-MED ONCE .ROUTE ; Start 02/18/20 at 11:25; Stop 02/18/20 at 11:26; Status DC Ondansetron HCl (Zofran) 4 mg STK-MED ONCE .ROUTE ; Start 02/18/20 at 11:25; Stop 02/18/20 at 11:26; Status DC Rocuronium [place] (Zemuron) 50 mg STK-MED ONCE .ROUTE ; Start 02/18/20 at 11:2 5; Stop 02/18/20 at 11:26; Status DC Fentanyl Citrate (Fentanyl 2ml Vial) 100 mcg STK-MED ONCE .ROUTE ; Start 02/18/20 at 11:26; Stop 02/18/20 at 11:26; Status DC Fentanyl Citrate (Fnlsguou-Cvics-QN 3 Mcg-0.1%) 50 ml STK-MED ONCE .ROUTE ; Start 02/17/20 at 10:00; Stop 02/18/20 at 14:28; Status DC Ropivacaine (Naropin 0.2%) 10 ml STK-MED ONCE .ROUTE ; Start 02/17/20 at 10:00; Stop 02/18/20 at 14:28; Status DC Active Scripts Active Cephalexin 500 Mg Capsule 1 Cap PO QID Proventil Hfa (Albuterol Sulfate) 6.7 Gm Hfa.aer.ad 1 Puff INH PRN Q6HRS PRN Ibuprofen 400 Mg Tablet 800 Mg PO PRN Q8HRS PRN Keflex (Cephalexin) 500 Mg Capsule 1 Cap PO BID 7 Days Metrogel-Vaginal (Metronidazole) 70 Gm Gel.w.appl 1 Appful VG QHS 7 Days Flagyl (Metronidazole) 500 Mg Tablet 1 Tab PO BID Metrogel-Vaginal (Metronidazole) 70 Gm Gel.w.appl 1 Appful VG QHS 7 Days Reglan (Metoclopramide Hcl) 10 Mg Tablet 1 Tab PO TID PRN Naproxen 500 Mg Tablet 1 Tab PO BID [place] 5-325 Tablet (Acetaminophen/Hydrocodone Bitart) 1 Each Tablet 1 Tab PO PRN Q6HRS PRN Reported Valacyclovir (Valacyclovir Hcl) 500 Mg Tablet 1 Tab PO DAILY Vitamin C (Ascorbic Acid) 100 Mg Tablet 1 Tab PO DAILY 30 Days Vitamins ( Vits W-Ca,Fe,Fa(<1MG)) 1 Each Tablet 1 Tab PO DAILY 30 Days No Known Medications Prior To Admisstion (Info) Each 1 Each MC Exam Abd: soft, non tender, fundus firm Assessment PPD#1 s/p Plan of Care: Continue current Tx, Mgmt RICCO GARCIA Jr, MD Feb 18, 2020 16:58
[2020-02-18 21:28] VITALS: BP 107/52
[2020-02-18] MEDS: IV RINGERS,LACTATED 1000ML 1,000 ML IV SCH (21:38)
[2020-02-19] VITALS (14 sets, daily range): BP systolic 92–113; BP diastolic 48–66
[2020-02-19] MEDS ORDERED: LIDOCAINE 1%/EPI 1:100,000 20 ML VIAL. ONE (07:12)
[2020-02-19] MEDS ORDERED: ONDANSETRON PF 4 MG/2 ML VIAL. ONE (07:23)
[2020-02-19] MEDS ORDERED: ROCURONIUM 50 MG/5 ML VIAL. ONE (07:23)
[2020-02-19] MEDS ORDERED: DEXAMETHASONE SOD PHOS 4 MG/ML VIAL ONE (07:23)
[2020-02-19] MEDS ORDERED: LIDOCAINE 2% PF 5 ML VIAL. ONE (07:23)
[2020-02-19] MEDS ORDERED: PROPOFOL 10 MG/ML (20ML) VIAL. IV ONE (07:23)
[2020-02-19] MEDS ORDERED: SEVOFLURANE 31 TO 60 MINUTES. IH ONE (07:23)
[2020-02-19] MEDS ORDERED: SUCCINYLCHOLINE 200 MG/10 ML VIAL. ONE (07:32)
[2020-02-19] MEDS ORDERED: NEOSTIGMINE METHYLSULFATE 5 MG/5 ML SYRINGE. ONE (07:46)
[2020-02-19] MEDS ORDERED: GLYCOPYRROLATE 1 MG/5 ML VIAL. ONE (07:46)
[2020-02-19] MEDS: FERROUS SULFATE 325 MG TABLET. PO SCH ×2 (08:00→21:31)
[2020-02-19] MEDS ORDERED: PHENYLEPHRINE in 0.9% NACL PF 1 MG/10 ML SYRINGE. IV ONE (08:06)
--- NOTE | 2020-02-19 08:21 | PDOC ---
BRIEF OPERATIVE NOTE Date: Feb 19, 2020 Pre-Op Diagnosis Sterilization Post-Op Diagnosis Same Procedure Performed PP BTL Surgeon Dr. More Anesthesia Type: General Blood Loss 5 ml Specimens Obtained none Findings enlarged, post uterus, nml fallopian tubes raquel. Complications none Operative Note see dictation RICCO MORE Jr, MD Feb 19, 2020 08:21
--- NOTE | 2020-02-19 08:28 | OP ---
DATE OF SURGERY: PREOPERATIVE DIAGNOSIS: Sterilization. POSTOPERATIVE DIAGNOSIS: Sterilization. PROCEDURE: bilateral tubal ligation with Filshie clips. SURGEON: Ismael More MD ANESTHESIA: GETA. ESTIMATED BLOOD LOSS: Less than 5 mL. COMPLICATIONS: None. FINDINGS: Enlarged uterus, normal fallopian tubes bilaterally. SUMMARY: A 24-year-old female who desired permanent sterilization, day #2, status post spontaneous vaginal delivery. She was counseled on risks, benefits and expectations as well as the failure rate and voiced clear understanding to proceed. DESCRIPTION OF PROCEDURE: The patient was taken to surgery suite and placed in dorsal supine position. She was prepped with ChloraPrep and draped in sterile fashion. After adequate anesthesia, Allis clamps were placed just below the umbilicus. 1% lidocaine with epinephrine was injected between the 2 Allis clamps in a transverse fashion. Scalpel was utilized to make a transverse skin incision. The fascia was then entered sharply using curved Zheng scissors. The appendiceal retractor was then placed. The right fallopian tube was identified, followed out to its fimbriated end with [place]. Filshie clip was applied to the isthmus region of the right fallopian tube, totally occluding the fallopian tube. Same process took place with left adnexa. The fascia was then reapproximated using 2-0 Vicryl suture in running fashion. Skin was reapproximated using 4-0 Vicryl suture in subcuticular manner. The patient tolerated the procedure well and was taken to recovery room in stable condition. Sponge and needle count correct x 3. ISMAEL MORE MD DR: ANGIE/frida JOB#: [id number] / [id number]
[2020-02-19] MEDS ORDERED: PROCHLORPERAZINE 10 MG/2 ML VIAL. ONE (08:30)
[2020-02-19] MEDS ORDERED: IV RINGERS,LACTATED 1000ML 1,000 ML IV SCH ×2 (08:44)
[2020-02-19] MEDS ORDERED: fentaNYL PF VIAL 100 MCG/2 ML VIAL ONE (08:44)
[2020-02-19] MEDS ORDERED: HYDROmorphone 2 MG/ML VIAL IV PRN (08:45)
[2020-02-19] MEDS ORDERED: ONDANSETRON PF 4 MG/2 ML VIAL. IV PRN (08:45)
[2020-02-19] MEDS ORDERED: LIDOCAINE 1% PF 2 ML VIAL. ID PRN (08:45)
[2020-02-19] MEDS ORDERED: HYDROmorphone 2 MG/ML VIAL IVP PRN (08:45)
[2020-02-19] MEDS ORDERED: MORPHINE SULFATE 2 MG/ML VIAL. IVP PRN (08:45)
[2020-02-19] MEDS ORDERED: PROCHLORPERAZINE 10 MG/2 ML VIAL. IV PRN (08:45)
[2020-02-19] MEDS ORDERED: ONDANSETRON PF 4 MG/2 ML VIAL. IVP PRN (08:45)
[2020-02-19] MEDS ORDERED: fentaNYL PF VIAL 100 MCG/2 ML VIAL IVP PRN (08:45)
[2020-02-19] MEDS ORDERED: MORPHINE SULFATE 2 MG/ML VIAL. IV PRN (08:45)
[2020-02-19] MEDS ORDERED: fentaNYL PF VIAL 100 MCG/2 ML VIAL IV PRN ×2 (08:45)
[2020-02-19] MEDS: fentaNYL PF VIAL 100 MCG/2 ML VIAL IVP PRN ×2 (08:51→09:20)
[2020-02-19] MEDS: MULTIVITAMIN with MINERAL TABLET. PO SCH (09:00)
--- NOTE | 2020-02-19 09:40 | NUR ---
Pt back from surgery for a bilat tubal. Pt arousable and denying pain at this time.
[2020-02-19] MEDS: IBUPROFEN 400 MG TABLET. PO PRN ×2 (12:11→21:35)
[2020-02-20 00:21] VITALS: BP 106/53
[2020-02-20] MEDS: IBUPROFEN 400 MG TABLET. PO PRN (06:14)
[2020-02-20 06:29] VITALS: BP 94/55
[2020-02-20] MEDS: MULTIVITAMIN with MINERAL TABLET. PO SCH (08:31)
[2020-02-20] MEDS: FERROUS SULFATE 325 MG TABLET. PO SCH (08:31)
--- NOTE | 2020-02-20 13:04 | PDOC3 ---
OB DISCHARGE SUMMARY DATE OF ADMISSION: 02/17/20 DATE OF DISCHARGE: 02/20/20 REASON FOR ADMISSION: Induction of labor INTRAPARTUM PROCEDURES: Spontanous Vag Deliv PROCEDURES: Tubal Ligation DISCHARGE DIAGNOSIS: Term Delivered DISCHARGE INFORMATION: Activity (ad dustin), Diet (regular), Instructions (pelvic rest x 6 wks) HOSPITAL COURSE Term gestation delivered vaginally without complications and completed PP BTL. RICCO GARCIA Jr, MD Feb 20, 2020 13:04
[2020-02-20] MEDS ORDERED: IBUP-1027 PO (13:06)
--- NOTE | 2020-02-20 13:06 | DISCH ---
DISCHARGE INSTRUCTIONS Condition on Discharge Condition on Discharge: Stable Activity After Discharge Activity Instructions for Disc: Activity as tolerated Bathing Instructions: No Tub Bath until see Lifting Instructions after Dis: No heavy lifting, No pulling or pushing, Do not lift >10 pounds Driving Instructions after Dis: Do not drive today Weight Bearing Status after Di: As tolerated Diet after Discharge Diet after Discharge: Regular Diet Texture: Regular Contacting the DRGeronimo after DC Call your doctor for: Concerns you may have Follow-Up Follow up with: Dr. More in 6 wks Treatment/Equipment after DC Adaptive Equipment Issued: None RICCO MORE Jr, MD Feb 20, 2020 13:06
[2020-02-20 13:35] VITALS: BP 103/56
--- NOTE | 2020-02-20 13:35 | NUR ---
Discharge instructions given to pt. Pt verbalized understanding and denied questions. Pt discharged home
== END 2020-02-20 14:00 | disposition home or self-care (01) | DRG 798 ==
LOC: 3 SO LND 06:47 → 3 NORTH 13:48 → 3 SO LND 13:59 → 3 NORTH 15:22
PROVIDERS: ADMIT Obstetrics & Gynecology; ATTEND Obstetrics & Gynecology
PROC: 10E0XZZ Delivery of Products of Conception, External Approach (ICD-10-PCS; principal; 2020-02-17)
PROC: 00HU33Z Insertion of Infusion Device into Spinal Canal, Percutaneous Approach (ICD-10-PCS; 2020-02-17)
PROC: 3E0R3BZ Introduction of Anesthetic Agent into Spinal Canal, Percutaneous Approach (ICD-10-PCS; 2020-02-17)
PROC: 0UL70CZ Occlusion of Bilateral Fallopian Tubes with Extraluminal Device, Open Approach (ICD-10-PCS; 2020-02-19)
DX: O69.81X0 Labor and delivery complicated by cord around neck, without compression, not applicable or unspecified (principal); Z37.0 Single live birth; Z20.828 Contact with and (suspected) exposure to other viral communicable diseases; Z3A.39 39 weeks gestation of pregnancy; Z86.19 Personal history of other infectious and parasitic diseases; Z30.2 Encounter for sterilization
CPT/HCPCS: 36415; 81001; 85025; 86592; 86850; 86900; 86901; 87086; A7015; J0330; J0780; J1100; J2370; J2405; J2590; J2704; J2710; J2795; J3010; J3490; J7120; G0378; U0003-CS

== ENCOUNTER 2020-08-17 17:10 | Emergency (ER) | payer OTHER, BC ==
[~2020-08-17] VITALS: Ht 172.7 cm; Wt 62.0 kg
[~2020-08-17 17:10] MED LIST changes: +ASCO100T4 PO; +PREN1TAB58 PO; +VALA500T9 PO
--- NOTE | 2020-08-17 18:03 | RAD ---
INDICATION: Reason: PUI / Spl. Instructions: / History: COMPARISON: January 2019 FINDINGS: Single view of chest obtained. Cardiac silhouette is unremarkable. There is some nodularity seen within the right lower lung. A definite well-defined focal airspace consolidation is not seen. IMPRESSION: * No definite focal airspace consolidation. * There is some nodularity seen at the right lower lung. Could be from vessel seen on end or some sm all pulmonary nodules with nonspecific appearance but granulomatous disease is within the differentia l. Electronically signed by: Noah Chang MD (08/17/2020 6:01 PM) [id number]
[2020-08-17 18:17] LABS: INFLUENZA A PATIENT NEGATIVE (NEGATIVE); INFLUENZA B PATIENT NEGATIVE (NEGATIVE)
--- NOTE | 2020-08-17 18:29 | ED.ADGEN ---
Past Medical History Past Medical History: No Pertinent History Additional Past Medical Histor: ETOH ABUSE Past Surgical History: No Surgical History Smoking Status: Never Smoker Alcohol Use: None Drug Use: None General Adult EDM: Chief Complaint: GENERALIZED BODY ACHES HPI: HPI: Patient is a 25 year old AA female who presents to the ER with complaints of chest pain since 1300 today. She reports that the pain is at times worse when she takes a deep breath. She states she has had prior episodes of chest pain just like this when she had anxiety problems. In addition to the chest pain she reports body aches, shortness of breath, and a dry cough. She denies any recent fever, dizziness, nausea, vomiting, abdominal pain, diaphoresis, palpitations, sore throat, or headache. She denies any known exposure to COVID-19. Patient denies any family history of heart disease. She denies any medical or surgical history. She currently rates pain a 3 out of 10 on the pain scale, she describes the pain is dull in nature, she denies any alleviating factors, at times the pain does increase with a deep breath or cough. Review of Systems: Review of Systems: Complete ROS is negative unless otherwise noted in HPI. Allergies: Allergies: Allergies Coded Allergies Type Severity Reaction Last Updated Verified No Known Drug Allergies 02/17/20 No Physical Exam: PE: See Above Constitutional: Well developed, well nourished, no acute distress, non-toxic appearance. [] HENT: Normocephalic, atraumatic, bilateral external ears normal, nose normal. [] Eyes: PERRLA, EOMI, conjunctiva normal, no discharge. [] Neck: Normal range of motion, no stridor. [] Cardiovascular:Heart rate regular rhythm Lungs & Thorax: Respirations even and unlabored, no retractions, no respiratory distress Abdomen: soft, no tenderness Skin: Warm, dry, no erythema, no rash. [] Extremities: No cyanosis, ROM intact, no edema. [] Neurologic: Alert and oriented X 3, no focal deficits noted. [] Psychologic: Affect normal, judgement normal, mood normal. [] Current Patient Data: Labs: Laboratory Tests Test 08/17/20 17:32 08/17/20 17:48 POC Urine HCG, Qualitative Hcg negative (Negative) Influenza Type A Antigen Negative (NEGATIVE) Influenza Type B Antigen Negative (NEGATIVE) Vital Signs: Vital Signs Date Time Temp Pulse Resp B/P (MAP) Pulse Ox O2 Delivery O2 Flow Rate FiO2 08/17/20 18:56 68 116/65 (82) 100 Room Air 08/17/20 17:15 98.5 16 98.5 EKG: EK-sinus rhythm, rate 67, incomplete right bundle branch block, no STEMI, read by Dr. Marmolejo. [] Heart Score: HEART Score for Chest Pain: HEART Score for Chest Pain Response (Comments) Value History Slighlty/Non-Suspicious 0 ECG Normal 0 Age < 45 0 Risk Factors No Risk Factors 0 Total 0 Risk Scores: Score 0 - 3: 2.5% MACE over next 6 weeks - Discharge Home Score 4 - 6: 20.3% MACE over next 6 weeks - Admit for Clinical Observation Score 7 - 10: 72.7% MACE over next 6 weeks - Early Invasive Strategies Radiology/Procedures: Radiology/Procedures: PROCEDURE: CHEST AP ONLY INDICATION: Reason: PUI / Spl. Instructions: / History: COMPARISON: January 2019 FINDINGS: Single view of chest obtained. Cardiac silhouette is unremarkable. There is some nodularity seen within the right lower lung. A definite well-defined focal airspace consolidation is not seen. IMPRESSION: * No definite focal airspace consolidation. * There is some nodularity seen at the right lower lung. Could be from vessel seen on end or some small pulmonary nodules with nonspecific appearance but granulomatous disease is within the differential.[] Course & Med Decision Making: Course & Med Decision Making Pertinent Labs and Imaging studies reviewed. (See chart for details) 25-year-old female presents emergency department with complaints of substernal chest pain that began at 1300 this afternoon and occasionally increases with deep breath. Patient denied any medical or surgical history she also denied any family his tory of heart disease. EKG revealed no acute changes, patient's chest x-ray revealed some nodularity at the right lower lung with a nonspecific appearance. I advised the patient of the nodularity encouraged her to follow-up with her primary care doctor for repeat evaluation. I would low suspicion of ACS. The patient was encouraged to take ibuprofen, avoid airway irritants and dairy products, increase clear fluids and follow-up with her primary care doctor. I encouraged patient to return to the ER if her chest pain worsened, she became diaphoretic, or developed additional concerns like nausea, vomiting, abdominal pain, back pain, or fever. Patient verbalized an understanding of home care, medications, follow-up, and return to ED instructions and was in agreement with the plan of care. COVID-19 CRITERIA: The patient was evaluated during the global COVID-19 pandemic, and that diagnosis was suspected/considered upon their initial presentation. Their evaluation, treatment and testing was consistent with current guidelines for patients who present with complaints or symptoms that may be related to COVID-19. [] Dragon Disclaimer: Dragon Disclaimer: This electronic medical record was generated, in whole or in part, using a voice recognition dictation system. Departure Departure Impression: Primary Impression: Person under investigation for COVID-19 Additional Impressions: URI (upper respiratory infection) Chest pain Disposition: 01 DC HOME SELF CARE/HOMELESS Condition: STABLE Referrals: NIKOLAS SAENZ (PCP) Patient Instructions: Chest Pain (Nonspecific), [id number], Upper Respiratory Infection, Adult, [id number] Additional Instructions: You have been tested for or diagnosed with COVID-19. It is an infection caused by a new type of coronavirus. COVID-19 will cause cold-like or mild flu symptoms in most. It can cause more severe symptoms like problems breathing in some. There is no treatment for COVID-19. The body will clear the infection over time. Self-care will help to ease discomfort. Steps to Take: Self-Care Rest as needed. Healthy habits may help you feel better. Steps include: Choose healthy foods including fruits and vegetables. Drink water throughout the day. Get plenty of sleep each night. If you smoke, try to quit. It may ease breathing. Avoid alcohol. Keep Others Healthy The virus can spread to others. Droplets are released every time you sneeze or cough. The droplets can get into the mouth, nose, or eyes of people near you and lead to infection. To lower the chances of spreading COVID-19 to others: Stay at home until your doctor has said it is safe to leave. If you tested positive this will mean staying isolated until both of the following are true: At least 7 days have passed since the start of illness. You are free of fever for at least 72 hours without the use of medicine. During this time: - Avoid public areas, events, or transportation. Do not return to work or school until your doctor has said it is safe to do so. - Call ahead if you need to go to a medical center. Let them know you may have COVID-19. It will help them guide you where to go. They may also ask you to wear a facemask when you come to the office. - If you call for emergency medical services, let them know you may have COVID- 19. While at home: - Try to avoid close contact with others. Stay about 6 feet away. - If possible, spend most of your time in a separate room from others. - Use a face mask if you will be in close contact with others such as sharing a room or vehicle. - Have someone wipe down common surfaces in the home. Use household java tech every day on areas like doorknobs, counters, or sinks. - Cough or sneeze into a tissue. Throw the tissue away right after use. If a tissue is not available, cough or sneeze into your elbow. - Wash your hands often. Wash them after sneezing or coughing. Use soap and water and wash for at least 20 seconds. Alcohol based hand belt cleaner can be used if soap and water is not available. - Do not prepare food for others. Avoid sharing personal items like forks, spoons, or toothbrushes. - Avoid close contact with pets while you are sick. There is no evidence of the virus passing to pets. This is a safety step until more is known about this virus. Isolation can be frustrating. Social interaction can help. Keep in touch with friends and family through phone and tech options. You can still interact with others in your home, just keep a safe distance of about 6 feet. Follow-up: Your doctors office will check in with you to see if there are any changes in your health. You may be asked to keep track of symptoms to share with them. They will also let you know when you are clear to be in public again. Problems to Look Out For: Contact your doctor if your recovery is not going as you expect. Get emergency care if you have problems such as: - Trouble breathing - Nonstop chest pain or pressure - Changes in awareness, confusion, or problems waking - Lips or face have bluish color - Worsening of symptoms If you think you have an emergency, call for emergency medical services right away. As taken from [facility] Health Problem Qualifiers Additional Impressions: URI (upper respiratory infection) URI type: unspecified URI Qualified Codes: J06.9 - Acute upper respiratory infection, unspecified Chest pain Chest pain type: unspecified Qualified Codes: R07.9 - Chest pain, unspecified LIANET SHARPE ROSTER CLERK Aug 17, 2020 18:29
[2020-08-17 18:56] VITALS: BP 116/65
--- NOTE | 2020-08-18 07:38 | EKG ---
[facility] [address] [place] [address] Test Date: 2020-08-17 Test Time: 17:26:31 Pat Name: NORA CHEATHAM Department: Room: Gender: F [employer] Department Floorperson: : 1995 Requested By: LIANET SHARPE Order Number: [id number] Reading MD: Measurements Intervals [place] Rate: 67 P: 47 AL: 116 QRS: 63 QRSD: 84 T: 62 QT: 398 QTc: 423 Interpretive Statements SINUS RHYTHM INCOMPLETE RIGHT BUNDLE BRANCH BLOCK QRS(T) CONTOUR ABNORMALITY CONSIDER INFERIOR MYOCARDIAL DAMAGE POSSIBLY ABNORMAL ECG RI6.01 No previous ECG available for comparison
--- NOTE | 2020-08-18 16:57 | NUR ---
IP: Informed pt of negative COVID test. Pt verbalized understanding.
== END 2020-08-17 19:10 | disposition home or self-care (01) ==
LOC: ER 17:10
DX: J06.9 Acute upper respiratory infection, unspecified (principal); R07.89 Other chest pain; Z20.828 Contact with and (suspected) exposure to other viral communicable diseases
CPT/HCPCS: 71045; 81025; 87804; 93005; 99285; C9803; U0003